=== PATIENT | female | born 2000 | race Caucasian/White ===

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

== ENCOUNTER 2020-01-20 12:44 | Inpatient (IN) | payer OTHER ==
[~2020-01-20] VITALS: Ht 167.6 cm; Wt 81.5 kg
[~2020-01-20 12:44] MED LIST changes: +Abilify2 MG PO; +FLUO10 PO; +Imitrex25 MG PO; +ONDA4ODT MM; +PANT40 PO; +Promethazine12.5 M1 PO; +Protonix40 MG PO; +TOPI50 PO
[2020-01-20 13:14] LABS: BASOPHILS ABSOLUTE AUTO 0.03 K/mm3 (0.00-0.23); BASOPHILS PERCENT AUTO 0 % (0-2); EOSINOPHILS ABSOLUTE AUTO 0.19 K/mm3 (0.00-0.68); EOSINOPHILS PERCENT AUTO 2 % (0-6); Hematocrit 42.9 % (33.0-51.0); Hemoglobin 13.9 g/dL (11.5-16.0); IMMATURE GRAN ABSOLUTE AUTO 0.02 K/mm3 (0.00-0.10); IMMATURE GRAN PERCENT AUTO 0 % (0-1); LYMPHOCYTES ABSOLUTE AUTO 2.34 K/mm3 (0.84-5.20); LYMPHOCYTES PERCENT AUTO 24 % (21-46); MONOCYTES PERCENT AUTO 7 % (4-13); Mean Corpuscular HGB 28.2 pg (26.0-34.0); Mean Corpuscular HGB Conc 32.4 g/dL (31.5-36.5); Mean Corpuscular Volume 87 fL (80-100); Mean Platelet Volume 9.1 fL (9.1-12.4); NEUTROPHILS ABSOLUTE AUTO 6.55 K/mm3 (1.96-9.15); NEUTROPHILS PERCENT AUTO 67 % (41-73); Platelet Count 515 K/mm3 (150-400); RDW Standard Deviation 44.9 fL (35.1-46.3); Red Blood Cell Count 4.93 M/mm3 (3.80-5.20); White Blood Cell Count 9.83 K/mm3 (4.00-11.30)
[2020-01-20 13:34] LABS: Alanine Aminotransfer (ALT/SGP 22 U/L (12-78); Albumin, Blood 3.9 g/dL (3.4-5.0); Alk Phos 83 U/L (45-116); Anion Gap 7 mmol/L (6-16); Aspartate Aminotrans (AST/SGOT 16 U/L (12-37); Bilirubin, Total 0.7 mg/dL (0.1-1.0); Blood Urea Nitrogen 7 mg/dL (8-21); Bun/Creatinine Ratio 8.3 (12.0-20.0); CO2, Blood 22 mmol/L (21-32); Calcium, Blood 8.9 mg/dL (8.5-10.1); Chloride, Blood 109 mmol/L (98-108); Creatinine, Blood 0.85 mg/dL (0.40-1.00); Globulin, Blood 4.1 g/dL (2.2-4.0); Glomerular Filtration Rate >60 (60-); Glucose, Blood 88 mg/dL (70-99); Potassium, Blood 3.6 mmol/L (3.5-5.5); Sodium, Blood 138 mmol/L (136-145)
[2020-01-20 17:18] LABS: Source, Urine Clean Catch
[2020-01-20 17:21] LABS: Appearance, Urine Hazy (Clear); Bilirubin, Urine Neg (Neg); Blood, Urine 2+ (Neg); Color, Urine Yellow (P-Yellow); Glucose Qualitative, Urine Neg (Neg); Ketones, Urine 4+ (Neg); Leukocyte Esterase, Urine 1+ (Neg); Nitrite, Urine Neg (Neg); Protein, Urine Neg (Neg); Urobilinogen, Urine 1+ (Normal)
[2020-01-20 17:37] LABS: Red Blood Cells, Urine 0-2 /hpf (0-2); Squamous Epithelial Cells Few /hpf (Few)
[2020-01-20 17:38] LABS: Bacteria Few /hpf
[2020-01-21 00:06] LABS: U Amphetamine Screen Not Detected; U Barbituate Screen Not Detected; U Benzodiazapine Screen Not Detected; U Buprenorphine Screen Not Detected; U Cannabinoids Screen DETECTED; U Cocaine Screen Not Detected; U Methadone Screen Not Detected; U Methamphetamine Screen Not Detected; U Opiates Screen Not Detected; U Oxycodone Screen Not Detected; U Phencyclidine Screen Not Detected; U Propoxyphene Screen Not Detected
[2020-01-21 05:22] LABS: BASOPHILS ABSOLUTE AUTO 0.04 K/mm3 (0.00-0.23); BASOPHILS PERCENT AUTO 0 % (0-2); EOSINOPHILS PERCENT AUTO 1 % (0-6); Hematocrit 37.8 % (33.0-51.0); Hemoglobin 12.2 g/dL (11.5-16.0); IMMATURE GRAN ABSOLUTE AUTO 0.05 K/mm3 (0.00-0.10); IMMATURE GRAN PERCENT AUTO 0 % (0-1); LYMPHOCYTES PERCENT AUTO 23 % (21-46); MONOCYTES PERCENT AUTO 7 % (4-13); Mean Corpuscular HGB 27.9 pg (26.0-34.0); Mean Corpuscular HGB Conc 32.3 g/dL (31.5-36.5); Mean Corpuscular Volume 87 fL (80-100); Mean Platelet Volume 9.3 fL (9.1-12.4); NEUTROPHILS ABSOLUTE AUTO 11.09 K/mm3 (1.96-9.15); NEUTROPHILS PERCENT AUTO 68 % (41-73); Platelet Count 466 K/mm3 (150-400); RDW Coefficient Variation 13.9 % (11.7-14.2); RDW Standard Deviation 44.5 fL (35.1-46.3); Red Blood Cell Count 4.37 M/mm3 (3.80-5.20); White Blood Cell Count 16.28 K/mm3 (4.00-11.30)
[2020-01-21 05:39] LABS: Albumin, Blood 3.2 g/dL (3.4-5.0); Anion Gap 8 mmol/L (6-16); Blood Urea Nitrogen 7 mg/dL (8-21); Bun/Creatinine Ratio 9.6 (12.0-20.0); CO2, Blood 22 mmol/L (21-32); Calcium, Blood 8.5 mg/dL (8.5-10.1); Chloride, Blood 110 mmol/L (98-108); Creatinine, Blood 0.73 mg/dL (0.40-1.00); Glomerular Filtration Rate >60 (60-); Glucose, Blood 77 mg/dL (70-99); Phosphorus, Blood 4.6 mg/dL (2.5-4.9); Potassium, Blood 3.4 mmol/L (3.5-5.5); Sodium, Blood 140 mmol/L (136-145)
--- NOTE | 2020-01-21 06:00 | NUR ---
SHIFT SUMMARY: PATIENT VSS, NO ISSUES THIS SHIFT, ADMISSION COMPLETED.
--- NOTE | 2020-01-21 12:23 | NUR ---
PT RECEIVES STATUS CHANGE TO MEDICAL DEPT. REPORT GIVEN TO QUITA GREENBERG IN MEDICAL DEPT TO RECEIVE PT.
--- NOTE | 2020-01-21 13:29 | NUR ---
PCU TRANSFER TO 302. PT IS A/O X4. STATE CONTINUING N/V, UNABLE TO EAT X 3 DAYS. 250ML YELLOWISH EMESIS NOTED. PT NPO @ THIS TIME, DECLINE ICE CHIPS. BT HYPO, ABD SOFT. PT STATE NORMAL BM YESTERDAY. NS INFUSING @ 100 ML/HR. WILL PROVIDE ANTIEMETICS/ORDER.
--- NOTE | 2020-01-21 16:58 | NUR ---
SUMMARY PT HAS BEEN NAUSEATED, VOMITING INTERMITTANTLY T/O DAY. PT UNABLE TO EAT X3 DAYS. DR ALVES STATE POSSIBLE ENTERITIS. WBC 16.28. NS @ 100 ML/HR FOR HYDRATION. PT IS WEAK/FATIGUED, IN BED T/O DAY, SIDE LYING. STATE BM YESTERDAY. HAVE GIVEN ZOFRAN, PHENERGAN & REGLAN TODAY HOWEVER W/O GOOD RESULTS, DR ALVES INCREASE PHENERGAN DOSE, STATE TO ALTERNATE MEDS. S/O @ BEDSIDE. THIS AFTERNOON LOW GRADE TEMP 100.9, @ THIS TIME AFEBRILE 97.8.
--- NOTE | 2020-01-22 04:06 | NUR ---
SHIFT SUMMARY ASSUMED CARE OF PT AT 1900. PT IS A/OX4, DENIES N/T IN EXTREMTES. PT HAS BEEN VERY TIRED AND SLEPT T/O THE NIGHT. HEART SOUNDS REGULAR, TELE SHOWS SINUS @ 81, DENIES CP. LUNG SOUNDS CLEAR, LIBRADO SOB. PT HAS BEEN RETCHING ALL NIGHT, EMESIS IS DARK COLORED. PT WAS MEDICATED ONCE DURING THE NIGHT WITH REGALAN. PT IS INDEPENDENT TO BATHROOM. CALL LIGHT IN REACH, BED IN LOWEST POSTION.
[2020-01-22 05:20] LABS: BASOPHILS ABSOLUTE AUTO 0.02 K/mm3 (0.00-0.23); BASOPHILS PERCENT AUTO 0 % (0-2); EOSINOPHILS ABSOLUTE AUTO 0.01 K/mm3 (0.00-0.68); EOSINOPHILS PERCENT AUTO 0 % (0-6); Hematocrit 40.5 % (33.0-51.0); Hemoglobin 12.8 g/dL (11.5-16.0); IMMATURE GRAN ABSOLUTE AUTO 0.05 K/mm3 (0.00-0.10); IMMATURE GRAN PERCENT AUTO 0 % (0-1); LYMPHOCYTES ABSOLUTE AUTO 1.82 K/mm3 (0.84-5.20); LYMPHOCYTES PERCENT AUTO 11 % (21-46); MONOCYTES ABSOLUTE AUTO 1.01 K/mm3 (0.16-1.47); MONOCYTES PERCENT AUTO 6 % (4-13); Mean Corpuscular HGB 27.8 pg (26.0-34.0); Mean Corpuscular HGB Conc 31.6 g/dL (31.5-36.5); Mean Corpuscular Volume 88 fL (80-100); Mean Platelet Volume 9.6 fL (9.1-12.4); NEUTROPHILS ABSOLUTE AUTO 13.68 K/mm3 (1.96-9.15); NEUTROPHILS PERCENT AUTO 82 % (41-73); Platelet Count 505 K/mm3 (150-400); RDW Coefficient Variation 14.1 % (11.7-14.2); RDW Standard Deviation 45.3 fL (35.1-46.3); White Blood Cell Count 16.59 K/mm3 (4.00-11.30)
[2020-01-22 05:42] LABS: Albumin, Blood 3.7 g/dL (3.4-5.0); Anion Gap 10 mmol/L (6-16); Blood Urea Nitrogen 7 mg/dL (8-21); Bun/Creatinine Ratio 9.9 (12.0-20.0); CO2, Blood 20 mmol/L (21-32); Calcium, Blood 8.5 mg/dL (8.5-10.1); Chloride, Blood 111 mmol/L (98-108); Creatinine, Blood 0.71 mg/dL (0.40-1.00); Glomerular Filtration Rate >60 (60-); Glucose, Blood 87 mg/dL (70-99); Phosphorus, Blood 3.3 mg/dL (2.5-4.9); Potassium, Blood 3.8 mmol/L (3.5-5.5); Sodium, Blood 141 mmol/L (136-145)
--- NOTE | 2020-01-22 17:58 | NUR ---
SHIFT SUMMARY: PT CONTINUED TO BE NAUSEATED AND HAD SEVERAL EPISODES OF EMESIS, DARK GREEN WITH NO NAE BLOOD. GIVEN ICE CHIPS AND ICE WATER, POORLY TOLERATED. SHOWERED X 2, GETTING UP TO BR INDEPENDENTLY. NO EVENTS ON TELEMETRY. C/O PAIN IN RUQ AND RLQ; MEDICATED PER EMAR WITH SHORT TERM RELIEF. S.O. AT BEDSIDE FOR PART OF THE DAY. NO INFORMATION TO BE GIVEN IF PT'S "MOTHER" CALLS.
--- NOTE | 2020-01-23 04:27 | NUR ---
TRUER PINION AND WHEEL SUMMARY ALERT AND ORIENTED. REPORTS EPIGASTRIC PAIN T/O NIGHT WITH SEVERAL EPISODES OF DARK BROWN EMESIS. DENIES SOB. NO ACUTE DISTRESS NOTED. BED IN LOWEST POSITION WITH CALL LIGHT IN REACH. WILL CONTINUE TO MONTIOR AND REPORT TO ONCOMING RN.
[2020-01-23 09:23] LABS: BASOPHILS ABSOLUTE AUTO 0.03 K/mm3 (0.00-0.23); BASOPHILS PERCENT AUTO 0 % (0-2); EOSINOPHILS ABSOLUTE AUTO 0.07 K/mm3 (0.00-0.68); EOSINOPHILS PERCENT AUTO 0 % (0-6); Hematocrit 41.6 % (33.0-51.0); Hemoglobin 13.5 g/dL (11.5-16.0); IMMATURE GRAN ABSOLUTE AUTO 0.06 K/mm3 (0.00-0.10); IMMATURE GRAN PERCENT AUTO 0 % (0-1); LYMPHOCYTES ABSOLUTE AUTO 2.43 K/mm3 (0.84-5.20); LYMPHOCYTES PERCENT AUTO 14 % (21-46); MONOCYTES ABSOLUTE AUTO 1.05 K/mm3 (0.16-1.47); MONOCYTES PERCENT AUTO 6 % (4-13); Mean Corpuscular HGB 28.4 pg (26.0-34.0); Mean Corpuscular HGB Conc 32.5 g/dL (31.5-36.5); Mean Corpuscular Volume 87 fL (80-100); Mean Platelet Volume 9.2 fL (9.1-12.4); NEUTROPHILS ABSOLUTE AUTO 13.54 K/mm3 (1.96-9.15); NEUTROPHILS PERCENT AUTO 79 % (41-73); Platelet Count 495 K/mm3 (150-400); RDW Standard Deviation 45.7 fL (35.1-46.3); Red Blood Cell Count 4.76 M/mm3 (3.80-5.20); White Blood Cell Count 17.18 K/mm3 (4.00-11.30)
[2020-01-23 09:32] LABS: Anion Gap 9 mmol/L (6-16); Blood Urea Nitrogen 7 mg/dL (8-21); Bun/Creatinine Ratio 12.8 (12.0-20.0); CO2, Blood 24 mmol/L (21-32); Chloride, Blood 108 mmol/L (98-108); Creatinine, Blood 0.55 mg/dL (0.40-1.00); Glomerular Filtration Rate >60 (60-); Glucose, Blood 93 mg/dL (70-99); Magnesium, Blood 2.2 mg/dL (1.6-2.4); Potassium, Blood 3.6 mmol/L (3.5-5.5); Sodium, Blood 141 mmol/L (136-145)
--- NOTE | 2020-01-23 16:53 | NUR ---
SHIFT SUMMARY PT SLEEPING AT START OF SHIFT. LATER C/O N/V. 200cc CLEAR EMESIS OUT; MEDICATED PER EMAR. DR ALVES IN LATER TO SEE PT. NEW ORDERS RECEIVED. ATIVAN 0.5 MG GIVEN. N/V STOPPED AND PT WENT TO SLEEP, LATER REPORTING IT EFFECTIVE. EMESIS OUTPUT HAS DECREASED SIGNIFICANTLY AFTER ATIVAN GIVEN. PT WOKE RECENTLY AGAIN C/O NAUSEA WITH ONLY SM AMT CL EMESIS. ATIVAN 0.5 MG GIVEN PER EMAR. PT THEN UP TO SHOWER. IV TO LAC BECOMING DIFFICULT TO INFUSE. PT SL AT THIS TIME. NEW IV TO BE ATTEMPTED. PT HAS BEEN DIFFICULT START, PER REPORT. VISITOR IN AT THIS TIME. CALL LT IN REACH.
[2020-01-24 04:11] LABS: BASOPHILS ABSOLUTE AUTO 0.05 K/mm3 (0.00-0.23); BASOPHILS PERCENT AUTO 0 % (0-2); EOSINOPHILS ABSOLUTE AUTO 0.08 K/mm3 (0.00-0.68); EOSINOPHILS PERCENT AUTO 1 % (0-6); Hematocrit 37.7 % (33.0-51.0); Hemoglobin 12.4 g/dL (11.5-16.0); IMMATURE GRAN ABSOLUTE AUTO 0.04 K/mm3 (0.00-0.10); IMMATURE GRAN PERCENT AUTO 0 % (0-1); LYMPHOCYTES ABSOLUTE AUTO 2.43 K/mm3 (0.84-5.20); LYMPHOCYTES PERCENT AUTO 17 % (21-46); MONOCYTES ABSOLUTE AUTO 1.11 K/mm3 (0.16-1.47); MONOCYTES PERCENT AUTO 8 % (4-13); Mean Corpuscular HGB 28.2 pg (26.0-34.0); Mean Corpuscular HGB Conc 32.9 g/dL (31.5-36.5); Mean Corpuscular Volume 86 fL (80-100); Mean Platelet Volume 9.2 fL (9.1-12.4); NEUTROPHILS ABSOLUTE AUTO 10.81 K/mm3 (1.96-9.15); NEUTROPHILS PERCENT AUTO 75 % (41-73); Platelet Count 453 K/mm3 (150-400); RDW Coefficient Variation 13.8 % (11.7-14.2); RDW Standard Deviation 43.3 fL (35.1-46.3); White Blood Cell Count 14.52 K/mm3 (4.00-11.30)
[2020-01-24 04:26] LABS: Albumin, Blood 3.4 g/dL (3.4-5.0); Anion Gap 12 mmol/L (6-16); Blood Urea Nitrogen 8 mg/dL (8-21); Bun/Creatinine Ratio 14.3 (12.0-20.0); CO2, Blood 22 mmol/L (21-32); Calcium, Blood 8.3 mg/dL (8.5-10.1); Chloride, Blood 106 mmol/L (98-108); Creatinine, Blood 0.56 mg/dL (0.40-1.00); Glomerular Filtration Rate >60 (60-); Glucose, Blood 84 mg/dL (70-99); Magnesium, Blood 2.1 mg/dL (1.6-2.4); Phosphorus, Blood 2.9 mg/dL (2.5-4.9); Potassium, Blood 3.5 mmol/L (3.5-5.5); Sodium, Blood 140 mmol/L (136-145)
--- NOTE | 2020-01-24 04:42 | NUR ---
RAIL CREW MEMBER SUMMARY ALERT AND ORIENTED. NO ACUTE CHANGES THIS SHIFT. CONTINUES TO HAVE EMESIS EVERY 1-2 HOURS. BREATHING IS UNLABORED. VSS. BED IN LOWEST POSITION WITH CALL LIGHT IN REACH. WILL CONTINUE TO MONITOR AND REPORT TO ONCOMING RN.
--- NOTE | 2020-01-24 16:49 | NUR ---
SHIFT SUMMARY PT IS AXO4, WHO WAS ADMITTED FOR PNEUMOMEDIASTINUM. PT ON TELE, SINUS RHYTHM @60S- DENIES CP, SOB, PAIN. PT IS ON ROOM AIR, INDEPENDENT IN THE ROOM. PT HAD FEW EPISODES OF VOMITING TODAY. PT IS NOW ON CLEAR LIQUID DIET, HOWEVER; STILL HAD AN EPISODE OF N&V. ENCOURAGED PO TOLERATED, AND MEDICATED PER EMAR. BED IS IN THE LOWEST POSITION, CALL LIGHTS WITHIN REACH, AND WILL CONTINUE MONITOR UNTIL NEXT SHIFT REPORT.
--- NOTE | 2020-01-24 18:50 | NUR ---
PT N&V DID NOT IMPROVE AFTER THE ATIVAN AND PHENARGAN TODAY. GOT AN ORDER FOR GI CONSULT, APPARENTLY THERE ARE NO GI PROVIDER AVAILABLE UNTIL THE . INSTEAD GOT AN ORDER COMPAZINE RECTALLY.
--- NOTE | 2020-01-25 05:29 | NUR ---
SHIFT SUMMARY: VSS. DBP 99. BP ELEVATED UPON FIRST AM CHECK, BUT PT VOMITING AND UP TO BSC AT THE TIME OF BP CHECK. REASSESSED AND BP 139/99. PT RESTING QUIETLY AT THE TIME. ATIVAN ONLY GIVEN FOR NAUSEA. PT STATES HE RECEIVES NO RELIEF FROM ALTERNATE ANTIEMETICS. REFUSES SD MEDS. STATES ATIVAN DOES NOT RELIEVE NAUSEA BUT INSTEAD HELPS PT TO SLEEP THROUGH IT. WRETCHING AND VOMITING GREEN BILE INTERMITTENTLY THROUGH THE NIGHT. CONT IV FLUIDS. PT SUCKING ON ICE CHIPS. NO SOB. LSCTA. 02 SATS 99-100% ON RA. RESPS NON-LABORED. STATES THAT THROAT IS SORE AND ABD TENDER W/PALPATION BUT OTHERWISE NO PAIN REQUIRING ANALGESICS. NO ACUTE CHANGES OVERNIGHT. WILL CONT TO MONITOR.
[2020-01-25 05:56] LABS: Albumin, Blood 3.1 g/dL (3.4-5.0); Anion Gap 12 mmol/L (6-16); Blood Urea Nitrogen 6 mg/dL (8-21); CO2, Blood 22 mmol/L (21-32); Calcium, Blood 8.4 mg/dL (8.5-10.1); Chloride, Blood 103 mmol/L (98-108); Creatinine, Blood 0.55 mg/dL (0.40-1.00); Glomerular Filtration Rate >60 (60-); Glucose, Blood 75 mg/dL (70-99); Magnesium, Blood 2.1 mg/dL (1.6-2.4); Phosphorus, Blood 3.2 mg/dL (2.5-4.9); Potassium, Blood 2.9 mmol/L (3.5-5.5); Sodium, Blood 137 mmol/L (136-145)
--- NOTE | 2020-01-25 10:05 | NUR ---
PT GIRLFRIEND WAS CONCERNED ABOUT THE PT WANTING TO GO HOME WITH THE PT CURRENT CONDITION. PT STILL CONT VOMITING THIS MORNING. DR. ALVES ORDERED SCOPALAMINE PATCH, AND K-RIDER FOR THE PT LOW POTASSIUM, WHICH IS 2.9. I EXPLAINED TO THE PT ABOUT HER POTASSIUM, AND DECIDED TO STAY. PT STILL WANTS TO TALK TO THE DR ABOUT CONCERNS. NOTIFIED.
--- NOTE | 2020-01-25 15:15 | NUR ---
THE PT STATED WANTING TO GO HOME STILL AFTER THE 2 DOSE OF K-RIDER. PT STILL CONT VOMITING AFTER A DOSAGE OF ATIVAN, PHENERGAN, AND THE SCOPALAMINE PATCH. I CALLED DR. ALVES AND NOTIFIED HER.
[2020-01-25] MEDS ORDERED: PROM25 PO (17:34)
[2020-01-25] MEDS ORDERED: FAMO20 PO (17:35)
[2020-01-25] MEDS ORDERED: KLOR-CON M1010 MEQ PO (17:58)
--- NOTE | 2020-01-25 18:11 | NUR ---
DISCHARGE PT DISCHARGE VIA WHEELCHAIR WITH GIRLFRIEND. NO SOB, NO CP, BUT STILL CONTINUES TO HAVE NAUSEA AND VOMITING. DR ALVES NOTIFIED AND PT WANTED TO GO HOME DESPITE HIS CURRENT SITUATION. PT RECEIVED 2 DOSE OF KRIDER AND MULTIPLE DOSE OF ATIVAN AND PHENERGAN TODAY. PT NOTIFIED THAT NOCTURNIST PHYSICIAN WILL CALL FOR THE PT FOLLOW UP APPOINTMENT TO HIS PROVIDER. PT VERBALIZED UNDERSTANDING. PT RECEIVED INSTRUCTIONS/HANDOUTS/PRINTOUTS. IV DC'D. PRESCRIBED RX FAXED TO PHARMACY, WHICH IS [facility], AND PT INFORMED.
== END 2020-01-25 18:08 | disposition home or self-care (01) | DRG 392 ==
LOC: ER 12:44 → PCU 12:45 → ERHOLD 12:45 → PCU 01-21 00:31 → MEDS 01-21 12:24
PROVIDERS: Emergency Medicine; Internal Medicine; ADMIT Family Medicine
DX: R11.2 Nausea with vomiting, unspecified (principal); F12.99 Cannabis use, unspecified with unspecified cannabis-induced disorder; E87.6 Hypokalemia; F43.10 Post-traumatic stress disorder, unspecified; J98.2 Interstitial emphysema; F64.0 Transsexualism
CPT/HCPCS: 36415; 71045; 71046; 71250; 74220; 80048; 80053; 80069; 81001; 83690; 83735; 85025; 87086; 93005; 93010; 96361; 96374; 96375; 96376; 99285-25; C9113; G0378; J1170; J1630; J2060; J2405; J2550; J2765; J3010; J3480; J7030; J7120

== ENCOUNTER 2020-02-05 18:19 | Inpatient (IN) | payer OTHER ==
[~2020-02-05] VITALS: Ht 167.6 cm; Wt 77.1 kg
[~2020-02-05 18:19] MED LIST changes: -Abilify2 MG PO; +FAMO20 PO; -FLUO10 PO; +KLOR-CON M1010 MEQ PO; -PANT40 PO; +PHENERGAN25 MG PR; -Prazosin HCl5 MG PO; -Vistaril50 MG PO
[2020-02-05 19:25] LABS: BASOPHILS ABSOLUTE AUTO 0.08 K/mm3 (0.00-0.23); BASOPHILS PERCENT AUTO 0 % (0-2); EOSINOPHILS ABSOLUTE AUTO 0.09 K/mm3 (0.00-0.68); EOSINOPHILS PERCENT AUTO 0 % (0-6); Hematocrit 46.8 % (33.0-51.0); Hemoglobin 15.7 g/dL (11.5-16.0); IMMATURE GRAN ABSOLUTE AUTO 0.09 K/mm3 (0.00-0.10); IMMATURE GRAN PERCENT AUTO 0 % (0-1); LYMPHOCYTES ABSOLUTE AUTO 2.67 K/mm3 (0.84-5.20); LYMPHOCYTES PERCENT AUTO 12 % (21-46); MONOCYTES ABSOLUTE AUTO 1.92 K/mm3 (0.16-1.47); MONOCYTES PERCENT AUTO 8 % (4-13); Mean Corpuscular HGB 28.5 pg (26.0-34.0); Mean Corpuscular HGB Conc 33.5 g/dL (31.5-36.5); Mean Corpuscular Volume 85 fL (80-100); Mean Platelet Volume 10.3 fL (9.1-12.4); NEUTROPHILS ABSOLUTE AUTO 18.35 K/mm3 (1.96-9.15); NEUTROPHILS PERCENT AUTO 79 % (41-73); Platelet Count 482 K/mm3 (150-400); RDW Coefficient Variation 14.2 % (11.7-14.2); RDW Standard Deviation 43.8 fL (35.1-46.3)
[2020-02-05 19:39] LABS: International Normalized Ratio 1.84
[2020-02-05 19:43] LABS: Alanine Aminotransfer (ALT/SGP 140 U/L (12-78); Albumin, Blood 4.1 g/dL (3.4-5.0); Alk Phos 97 U/L (45-116); Anion Gap 10 mmol/L (6-16); Aspartate Aminotrans (AST/SGOT 28 U/L (12-37); Blood Urea Nitrogen 5 mg/dL (8-21); Bun/Creatinine Ratio 8.4 (12.0-20.0); CO2, Blood 26 mmol/L (21-32); Calcium, Blood 9.9 mg/dL (8.5-10.1); Chloride, Blood 100 mmol/L (98-108); Globulin, Blood 4.1 g/dL (2.2-4.0); Glomerular Filtration Rate >60 (60-); Glucose, Blood 95 mg/dL (70-99); Potassium, Blood 3.1 mmol/L (3.5-5.5); Sodium, Blood 136 mmol/L (136-145); Total Protein, Blood 8.2 g/dL (6.4-8.2)
[2020-02-05] MEDS ORDERED: OMEP20ER PO (21:33)
[2020-02-05] MEDS ORDERED: Vistaril50 MG PO (21:40)
[2020-02-05] MEDS ORDERED: Abilify2 MG PO (21:40)
[2020-02-05] MEDS ORDERED: FLUO10 PO (21:41)
[2020-02-05] MEDS ORDERED: PRAZ2 PO (21:51)
[2020-02-05] MEDS ORDERED: PROM25 PO (21:52)
--- NOTE | 2020-02-05 23:25 | NUR ---
NEW ADMIT FROM ER FOR APPENDICITIS/SEPSIS. PT ALERT, INDEPENDENLTY AMBULATES TO BED. STATES PAIN IS MINIMAL, DENIES N/V AT THIS TIME. PT IS TRANS MALE AND PREFERS TO BE CALLED "LEONITUS" REVIEWED ALL ORDERS, ANSWERED QUESTIONS. IV K+RIDER STARTED. BLOOD CONSENT SIGNED, SURGICAL PACKET ON CHART. ER DOCTOR SPOKE WITH DR. SPENCE ALREADY AND WILL CONSULT IN AM.
--- NOTE | 2020-02-06 01:14 | NUR ---
ASSUMED CARE OF PT. PT LYING AWAKE IN BED, NO DISTRESS NOTED. PT DENIES N/V, REPORTS PAIN SALAZAR AT THIS TIME. IVF AND K+ RIDER RUNNING PER ORDERS. PT DENIES NEEDS AT THIS TIME. WILL CONT TO MONITOR AND TX PER ORDERS.
[2020-02-06 06:24] LABS: BASOPHILS ABSOLUTE AUTO 0.04 K/mm3 (0.00-0.23); BASOPHILS PERCENT AUTO 0 % (0-2); EOSINOPHILS ABSOLUTE AUTO 0.21 K/mm3 (0.00-0.68); EOSINOPHILS PERCENT AUTO 2 % (0-6); Hematocrit 41.1 % (33.0-51.0); Hemoglobin 13.1 g/dL (11.5-16.0); IMMATURE GRAN ABSOLUTE AUTO 0.03 K/mm3 (0.00-0.10); IMMATURE GRAN PERCENT AUTO 0 % (0-1); LYMPHOCYTES ABSOLUTE AUTO 3.39 K/mm3 (0.84-5.20); LYMPHOCYTES PERCENT AUTO 26 % (21-46); MONOCYTES ABSOLUTE AUTO 1.36 K/mm3 (0.16-1.47); MONOCYTES PERCENT AUTO 10 % (4-13); Mean Corpuscular HGB 28.1 pg (26.0-34.0); Mean Corpuscular HGB Conc 31.9 g/dL (31.5-36.5); Mean Corpuscular Volume 88 fL (80-100); NEUTROPHILS ABSOLUTE AUTO 8.24 K/mm3 (1.96-9.15); NEUTROPHILS PERCENT AUTO 62 % (41-73); Platelet Count 344 K/mm3 (150-400); RDW Coefficient Variation 14.5 % (11.7-14.2); RDW Standard Deviation 46.7 fL (35.1-46.3); Red Blood Cell Count 4.67 M/mm3 (3.80-5.20); White Blood Cell Count 13.27 K/mm3 (4.00-11.30)
--- NOTE | 2020-02-06 06:41 | NUR ---
PT NEW ADMIT THIS SHIFT FOR APPY. PT VSS SINCE ARRIVING TO FLOOR. PT REP PAIN/N/V TOLERABLE, DECLINED NEED FOR MEDS. IVF AND ABX CONT PER ORDERS. PT NPO FOR PLAN FOR OR TODAY.
[2020-02-06 06:42] LABS: Anion Gap 4 mmol/L (6-16); Blood Urea Nitrogen 4 mg/dL (8-21); Bun/Creatinine Ratio 6.3 (12.0-20.0); CO2, Blood 30 mmol/L (21-32); Calcium, Blood 8.5 mg/dL (8.5-10.1); Chloride, Blood 105 mmol/L (98-108); Creatinine, Blood 0.64 mg/dL (0.40-1.00); Glomerular Filtration Rate >60 (60-); Glucose, Blood 88 mg/dL (70-99); Potassium, Blood 3.3 mmol/L (3.5-5.5); Sodium, Blood 139 mmol/L (136-145)
--- NOTE | 2020-02-06 07:10 | NUR ---
PT SLEEPING IN BED, BED IN LOWEST POSITION, BED RAILS UP X 2, CALL LIGHT WITHIN REACH
--- NOTE | 2020-02-06 08:00 | NUR ---
DAYSURGERY TO COME PREP PT FOR SURGERY; SENT COVID-19 SWAB AND UA TO LAB. PT EMPTIED BLADDER, REMOVED JEWELRY, IN GOWN ONLY
--- NOTE | 2020-02-06 08:30 | NUR ---
PT TO [facility] FOR APPENTECTOMY
--- NOTE | 2020-02-06 12:00 | NUR ---
PT BACK IN ROOM FOLLOWING APPENDECTOMY, A/O X 4, PLEASANT, DROWSY, STATES TO SOME MILD NAUSEA, NO VOMITING, RATES PAINT AT 7/10. PROVIDED ANALGESIA AND ANTINAUSEA PER JUL. PT'S FAMILY NOTIFIED OF CONDITION. POSTOP VS COMMENCED AND STABLE.
--- NOTE | 2020-02-07 02:43 | NUR ---
REPORT GIVEN TO Marcos BREWER RN AND Nataliia GUERRERO RN.
--- NOTE | 2020-02-07 02:50 | NUR ---
ASSUMED CARE ASSUMED CARE OF PT AT THIS TIME, REPORT RECEIVED FROM Benjamin MENDEZ RN.
--- NOTE | 2020-02-07 06:15 | NUR ---
SHIFT SUMMARY SEPSIS W/ LAP APPY, A/O X4, VSS, PAIN CONTROLLED PER EMAR, ABX COMPLETE, PLAN TO DC TODAY. WILL CONTINUE TO MONITOR AND REPORT TO ONCOMING DAY RN.
[2020-02-07 07:58] LABS: BASOPHILS ABSOLUTE AUTO 0.02 K/mm3 (0.00-0.23); BASOPHILS PERCENT AUTO 0 % (0-2); EOSINOPHILS ABSOLUTE AUTO 0.22 K/mm3 (0.00-0.68); EOSINOPHILS PERCENT AUTO 3 % (0-6); Hemoglobin 11.6 g/dL (11.5-16.0); IMMATURE GRAN ABSOLUTE AUTO 0.02 K/mm3 (0.00-0.10); IMMATURE GRAN PERCENT AUTO 0 % (0-1); LYMPHOCYTES ABSOLUTE AUTO 2.26 K/mm3 (0.84-5.20); LYMPHOCYTES PERCENT AUTO 27 % (21-46); MONOCYTES ABSOLUTE AUTO 0.91 K/mm3 (0.16-1.47); MONOCYTES PERCENT AUTO 11 % (4-13); Mean Corpuscular HGB 28.2 pg (26.0-34.0); Mean Corpuscular HGB Conc 30.5 g/dL (31.5-36.5); Mean Platelet Volume 10.6 fL (9.1-12.4); NEUTROPHILS ABSOLUTE AUTO 5.09 K/mm3 (1.96-9.15); NEUTROPHILS PERCENT AUTO 60 % (41-73); Platelet Count 275 K/mm3 (150-400); RDW Coefficient Variation 14.7 % (11.7-14.2); RDW Standard Deviation 50.4 fL (35.1-46.3); Red Blood Cell Count 4.11 M/mm3 (3.80-5.20); White Blood Cell Count 8.52 K/mm3 (4.00-11.30)
[2020-02-07 08:02] LABS: Mean Corpuscular Volume 93 fL (80-100)
[2020-02-07 08:25] LABS: Albumin, Blood 2.6 g/dL (3.4-5.0); Anion Gap 3 mmol/L (6-16); Blood Urea Nitrogen 2 mg/dL (8-21); Bun/Creatinine Ratio 3.6 (12.0-20.0); CO2, Blood 25 mmol/L (21-32); Chloride, Blood 110 mmol/L (98-108); Creatinine, Blood 0.55 mg/dL (0.40-1.00); Glomerular Filtration Rate >60 (60-); Glucose, Blood 90 mg/dL (70-99); Phosphorus, Blood 3.3 mg/dL (2.5-4.9); Potassium, Blood 4.3 mmol/L (3.5-5.5); Sodium, Blood 138 mmol/L (136-145)
[2020-02-07] MEDS ORDERED: Norco 5-325 Ta1 EACH PO (10:13)
--- NOTE | 2020-02-07 12:16 | NUR ---
DISCHARGE SUMMARY PT DISCHARDED AT 1204 TRANSPORTED VIA W/C WITH SHAYNE MANCERA. PT REPORTS MILD PAIN 3/10 ON RLQ REGION. PAIN CONTROLLED WITH 5MG NORCO PER MD ORDER. PT STS PAIN HAS IMPROVED. IV FROM RIGHT FOREARM HAS BEEN DC'S, CATH INTACT, NO SWELLING, PAIN AND INFILTRATION AT IV SITE. PT TOLERATED BREAKFAST MEAL DENIES NAUSEA AND VOMITING. URINE OUTPUT OF 1000ML. DISCHARGED INSTRUCTIONS WHERE ADDRESS AT 1133 WITH QUITA SAUCEDO.
== END 2020-02-07 12:07 | disposition home or self-care (01) | DRG 854 ==
LOC: ER 18:19 → SURS 21:55
PROVIDERS: Internal Medicine; Nurse Practitioner Acute Care; Physician Assistant; Surgery; ADMIT Internal Medicine
PROC: 0DTJ4ZZ Resection of Appendix, Percutaneous Endoscopic Approach (ICD-10-PCS; principal; 2020-02-06 10:00)
DX: A41.9 Sepsis, unspecified organism (principal); K35.80 Unspecified acute appendicitis; E87.6 Hypokalemia; F41.9 Anxiety disorder, unspecified; F32.9 Major depressive disorder, single episode, unspecified; F43.10 Post-traumatic stress disorder, unspecified; K21.9 Gastro-esophageal reflux disease without esophagitis; G40.909 Epilepsy, unspecified, not intractable, without status epilepticus; F64.0 Transsexualism; Z87.891 Personal history of nicotine dependence
CPT/HCPCS: 36415; 80048; 80053; 80069; 81025; 83605; 85025; 85610; 85730; 88304; 96365; 96375; 99284-25; A9270-GY; J0330; J0780; J1170; J2250; J2370; J2543; J2550; J2704; J2710; J3010; J3480; J7030; J7120; U0002

== ENCOUNTER 2020-05-29 10:11 | Emergency (ER) | payer OTHER ==
[~2020-05-29] VITALS: Ht 172.7 cm; Wt 77.1 kg
[~2020-05-29 10:11] MED LIST changes: +ALMACONE SUSPE355 ML PO; +Abilify2 MG PO; +FLUO10 PO; +Norco 5-325 Ta1 EACH PO; +PRAZ2 PO; +PROM25 PO; -TOPI50 PO; +Vistaril50 MG PO
[2020-05-29 10:43] LABS: BASOPHILS ABSOLUTE AUTO 0.06 K/mm3 (0.00-0.23); BASOPHILS PERCENT AUTO 0 % (0-2); EOSINOPHILS ABSOLUTE AUTO 0.22 K/mm3 (0.00-0.68); EOSINOPHILS PERCENT AUTO 1 % (0-6); Hematocrit 42.2 % (33.0-51.0); Hemoglobin 13.1 g/dL (11.5-16.0); IMMATURE GRAN ABSOLUTE AUTO 0.06 K/mm3 (0.00-0.10); IMMATURE GRAN PERCENT AUTO 0 % (0-1); LYMPHOCYTES PERCENT AUTO 13 % (21-46); MONOCYTES ABSOLUTE AUTO 0.97 K/mm3 (0.16-1.47); MONOCYTES PERCENT AUTO 6 % (4-13); Mean Corpuscular HGB 26.8 pg (26.0-34.0); Mean Corpuscular Volume 86 fL (80-100); Mean Platelet Volume 9.5 fL (9.1-12.4); NEUTROPHILS ABSOLUTE AUTO 13.43 K/mm3 (1.96-9.15); NEUTROPHILS PERCENT AUTO 80 % (41-73); Platelet Count 530 K/mm3 (150-400); RDW Coefficient Variation 13.6 % (11.7-14.2); RDW Standard Deviation 43.2 fL (35.1-46.3); Red Blood Cell Count 4.89 M/mm3 (3.80-5.20); White Blood Cell Count 16.84 K/mm3 (4.00-11.30)
[2020-05-29 11:01] LABS: Alanine Aminotransfer (ALT/SGP 33 U/L (12-78); Albumin, Blood 3.9 g/dL (3.4-5.0); Alk Phos 81 U/L (50-136); Anion Gap 9 mmol/L (6-16); Aspartate Aminotrans (AST/SGOT 14 U/L (12-37); Bilirubin, Total 0.2 mg/dL (0.1-1.0); Blood Urea Nitrogen 8 mg/dL (8-24); Bun/Creatinine Ratio 13.8 (12.0-20.0); CO2, Blood 23 mmol/L (21-32); Calcium, Blood 8.9 mg/dL (8.5-10.1); Chloride, Blood 108 mmol/L (98-108); Creatinine, Blood 0.58 mg/dL (0.40-1.00); Glomerular Filtration Rate >60 (60-); Glucose, Blood 117 mg/dL (70-99); Potassium, Blood 3.9 mmol/L (3.5-5.5); Sodium, Blood 140 mmol/L (136-145); Total Protein, Blood 7.9 g/dL (6.4-8.2)
[2020-05-29] MEDS ORDERED: PROM25 PO (12:53)
== END 2020-05-29 13:44 | disposition home or self-care (01) ==
LOC: ER 10:11
PROVIDERS: Emergency Medicine
DX: K29.70 Gastritis, unspecified, without bleeding (principal); G89.29 Other chronic pain; Z79.899 Other long term (current) drug therapy; Z88.2 Allergy status to sulfonamides; Z88.5 Allergy status to narcotic agent
CPT/HCPCS: 36415; 80053; 83690; 85025; 96374; 96375; 99284-25; J0780; J1200; J1630; J2405; J7030

== ENCOUNTER 2020-05-31 16:38 | Observation (INO) | payer OTHER ==
[~2020-05-31] VITALS: Ht 172.7 cm; Wt 80.9 kg
[2020-05-31 17:12] LABS: BASOPHILS ABSOLUTE AUTO 0.04 K/mm3 (0.00-0.23); BASOPHILS PERCENT AUTO 0 % (0-2); EOSINOPHILS PERCENT AUTO 0 % (0-6); Hematocrit 41.9 % (33.0-51.0); Hemoglobin 13.3 g/dL (11.5-16.0); IMMATURE GRAN ABSOLUTE AUTO 0.08 K/mm3 (0.00-0.10); IMMATURE GRAN PERCENT AUTO 0 % (0-1); LYMPHOCYTES ABSOLUTE AUTO 1.14 K/mm3 (0.84-5.20); LYMPHOCYTES PERCENT AUTO 5 % (21-46); MONOCYTES ABSOLUTE AUTO 0.65 K/mm3 (0.16-1.47); MONOCYTES PERCENT AUTO 3 % (4-13); Mean Corpuscular HGB 26.9 pg (26.0-34.0); Mean Corpuscular HGB Conc 31.7 g/dL (31.5-36.5); Mean Corpuscular Volume 85 fL (80-100); Mean Platelet Volume 9.4 fL (9.1-12.4); NEUTROPHILS ABSOLUTE AUTO 19.48 K/mm3 (1.96-9.15); NEUTROPHILS PERCENT AUTO 91 % (41-73); Platelet Count 529 K/mm3 (150-400); RDW Coefficient Variation 13.6 % (11.7-14.2); RDW Standard Deviation 42.1 fL (35.1-46.3); Red Blood Cell Count 4.95 M/mm3 (3.80-5.20); White Blood Cell Count 21.39 K/mm3 (4.00-11.30)
[2020-05-31 17:34] LABS: Alanine Aminotransfer (ALT/SGP 30 U/L (12-78); Alk Phos 79 U/L (50-136); Anion Gap 5 mmol/L (6-16); Aspartate Aminotrans (AST/SGOT 17 U/L (12-37); Bilirubin, Total 0.4 mg/dL (0.1-1.0); Blood Urea Nitrogen 7 mg/dL (8-24); Bun/Creatinine Ratio 14.3 (12.0-20.0); CO2, Blood 24 mmol/L (21-32); Calcium, Blood 9.1 mg/dL (8.5-10.1); Chloride, Blood 108 mmol/L (98-108); Creatinine, Blood 0.49 mg/dL (0.40-1.00); Globulin, Blood 4.2 g/dL (2.2-4.0); Glomerular Filtration Rate >60 (60-); Glucose, Blood 115 mg/dL (70-99); Potassium, Blood 3.9 mmol/L (3.5-5.5); Sodium, Blood 137 mmol/L (136-145); Total Protein, Blood 8.2 g/dL (6.4-8.2)
[2020-05-31] MEDS ORDERED: Reglan10 MG PO (20:36)
[2020-05-31] MEDS ORDERED: OMEP20ER PO (21:52)
[2020-05-31] MEDS ORDERED: PRAZ5 PO (21:52)
[2020-05-31] MEDS ORDERED: ABILIFY MYCITE2 MG PO (21:52)
[2020-05-31] MEDS ORDERED: HYDPAM50 PO (21:54)
[2020-05-31] MEDS ORDERED: FLUO10 PO (22:02)
[2020-05-31] MEDS ORDERED: TOPI50 PO (22:02)
[2020-05-31 23:59] LABS: Source, Urine Clean Catch
[2020-06-01 00:11] LABS: Bilirubin, Urine Neg (Neg); Blood, Urine 1+ (Neg); Glucose Qualitative, Urine Neg (Neg); Ketones, Urine 3+ (Neg); Leukocyte Esterase, Urine Neg (Neg); Nitrite, Urine Neg (Neg); Protein, Urine Neg (Neg); Urobilinogen, Urine NORM (Normal)
[2020-06-01 00:23] LABS: Appearance, Urine Clear (Clear); Color, Urine Yellow (P-Yellow)
[2020-06-01 00:24] LABS: Bacteria Not Seen /hpf; Mucus Light (0-Heavy); Red Blood Cells, Urine Rare /hpf (0-2); Squamous Epithelial Cells Few /hpf (Few); White Blood Cells, Urine Not Seen /hpf (0-5)
--- NOTE | 2020-06-01 05:01 | NUR ---
SHIFT SUMMARY PT NEW ED ADMIT THIS EVENING. ADMIT DX INTRACTABLE VOMITING. NO N/V SINCE ADMISSION. PT HAS ALSO DENIED ANY ABD PAIN. SLIGHT TENDERNESS TO ALL ABD QUADRANTS WHEN PALPATED. PT A/O. PLEASANT AND COOPERATIVE. CONTINUOUS IV FLUIDS INFUSING. PT SLEPT MUCH OF THE NIGHT. VITAL SIGNS STABLE. NO ACUTE CHANGES THIS SHIFT. WILL CONTINUE TO MONITOR.
[2020-06-01 05:17] LABS: BASOPHILS ABSOLUTE AUTO 0.05 K/mm3 (0.00-0.23); BASOPHILS PERCENT AUTO 0 % (0-2); EOSINOPHILS ABSOLUTE AUTO 0.17 K/mm3 (0.00-0.68); EOSINOPHILS PERCENT AUTO 1 % (0-6); Hematocrit 35.3 % (33.0-51.0); Hemoglobin 11.1 g/dL (11.5-16.0); IMMATURE GRAN ABSOLUTE AUTO 0.07 K/mm3 (0.00-0.10); IMMATURE GRAN PERCENT AUTO 0 % (0-1); LYMPHOCYTES ABSOLUTE AUTO 4.74 K/mm3 (0.84-5.20); LYMPHOCYTES PERCENT AUTO 28 % (21-46); MONOCYTES ABSOLUTE AUTO 1.43 K/mm3 (0.16-1.47); MONOCYTES PERCENT AUTO 9 % (4-13); Mean Corpuscular HGB 26.8 pg (26.0-34.0); Mean Corpuscular HGB Conc 31.4 g/dL (31.5-36.5); Mean Corpuscular Volume 85 fL (80-100); Mean Platelet Volume 9.7 fL (9.1-12.4); NEUTROPHILS ABSOLUTE AUTO 10.41 K/mm3 (1.96-9.15); NEUTROPHILS PERCENT AUTO 62 % (41-73); Platelet Count 406 K/mm3 (150-400); RDW Coefficient Variation 13.8 % (11.7-14.2); Red Blood Cell Count 4.14 M/mm3 (3.80-5.20); White Blood Cell Count 16.87 K/mm3 (4.00-11.30)
[2020-06-01 05:46] LABS: Alanine Aminotransfer (ALT/SGP 23 U/L (12-78); Albumin/Globulin Ratio 0.9 (0.8-1.8); Alk Phos 61 U/L (50-136); Anion Gap 7 mmol/L (6-16); Aspartate Aminotrans (AST/SGOT 11 U/L (12-37); Bilirubin, Total 0.6 mg/dL (0.1-1.0); Blood Urea Nitrogen 6 mg/dL (8-24); Bun/Creatinine Ratio 12.2 (12.0-20.0); CO2, Blood 23 mmol/L (21-32); Calcium, Blood 8.1 mg/dL (8.5-10.1); Chloride, Blood 110 mmol/L (98-108); Creatinine, Blood 0.49 mg/dL (0.40-1.00); Globulin, Blood 3.2 g/dL (2.2-4.0); Glomerular Filtration Rate >60 (60-); Glucose, Blood 94 mg/dL (70-99); Potassium, Blood 3.4 mmol/L (3.5-5.5); Sodium, Blood 140 mmol/L (136-145)
[2020-06-01 05:48] LABS: Total Protein, Blood 6.2 g/dL (6.4-8.2)
--- NOTE | 2020-06-01 18:25 | NUR ---
SHIFT SUMMARY NO ACUTE CHANGES THIS SHIFT. PATIENT IS ALERT, ORIENTED, INDEPENDENT IN HER ROOM. NAUSEA MOST OF SHIFT. EMESIS X3. HOT SHOWERS HELPED. SHE HAS ONLY BEEN ABLE TO SIP CLEARS AND HAVE 1/4 BANANA OVER 1 HR. IV ZOFRAN X1. BED LOW AND LOCKED, CALL LIGHT WITHIN REACH. WILL CONT TO MONITOR AND REPORT TO NIGHT SIFT.
--- NOTE | 2020-06-02 03:57 | NUR ---
SHIFT SUMMARY ADMITTED FOR INTRACTABLE VOMITING. FULL CODE. HOPEFUL FOR DC TODAY. POSSIBLE N/V FROM MARIJUANA USE, ERNESTO CLARKE TEAR - NOW RESOLVED. NO N/V THIS SHIFT. HOT SHOWERS SEEM TO EASE THOSE SYMPTOMS
[2020-06-02] MEDS ORDERED: ACET325 PO (09:27)
[2020-06-02] MEDS ORDERED: PROM25 PO (09:27)
--- NOTE | 2020-06-02 12:02 | NUR ---
PATIENT DISCHARGED TO HOME VIA TAXI. IV SALINE LOCK REMOVED WITHOUT INCIDENT. PATIENT VERBALIZED UNDERSTANDING OF D/C INSTRUCTIONS. WAS NOT VOMITING AT TIME OF D/C. LEFT UNIT VIA W/C AT 1135.
[2020-06-02] MEDS ORDERED: Cefpodoxime Pr200 MG PO (21:58)
== END 2020-06-02 11:48 | disposition home or self-care (01) ==
LOC: ER 16:38 → MEDS 16:39
PROVIDERS: Emergency Medicine; ADMIT Internal Medicine
DX: G43.A1 Cyclical vomiting, in migraine, intractable (principal); D72.829 Elevated white blood cell count, unspecified; K21.9 Gastro-esophageal reflux disease without esophagitis; E87.6 Hypokalemia; F32.9 Major depressive disorder, single episode, unspecified; F41.9 Anxiety disorder, unspecified; F43.10 Post-traumatic stress disorder, unspecified; F12.21 Cannabis dependence, in remission; Z91.5 Personal history of self-harm; Z87.891 Personal history of nicotine dependence
CPT/HCPCS: 36415; 80053; 81001; 83690; 84703; 85025; 96361; 96374; 96375; 96376; 99284-25; A9270; G0378; J1200; J1630; J2060; J2405; J2550; J3480; J7030

== ENCOUNTER 2020-06-02 18:30 | Observation (INO) | payer OTHER ==
[~2020-06-02] VITALS: Ht 172.7 cm; Wt 79.3 kg
[~2020-06-02 18:30] MED LIST changes: +ABILIFY MYCITE2 MG PO; +ACET325 PO; +HYDPAM50 PO; +OMEP20ER PO; +PRAZ5 PO; +Reglan10 MG PO; +TOPI50 PO
[2020-06-02 19:05] LABS: BASOPHILS ABSOLUTE AUTO 0.04 K/mm3 (0.00-0.23); BASOPHILS PERCENT AUTO 0 % (0-2); EOSINOPHILS PERCENT AUTO 0 % (0-6); Hematocrit 42.9 % (33.0-51.0); Hemoglobin 13.5 g/dL (11.5-16.0); IMMATURE GRAN ABSOLUTE AUTO 0.06 K/mm3 (0.00-0.10); IMMATURE GRAN PERCENT AUTO 0 % (0-1); LYMPHOCYTES ABSOLUTE AUTO 1.75 K/mm3 (0.84-5.20); LYMPHOCYTES PERCENT AUTO 10 % (21-46); MONOCYTES ABSOLUTE AUTO 0.86 K/mm3 (0.16-1.47); MONOCYTES PERCENT AUTO 5 % (4-13); Mean Corpuscular HGB 26.6 pg (26.0-34.0); Mean Corpuscular HGB Conc 31.5 g/dL (31.5-36.5); Mean Corpuscular Volume 84 fL (80-100); Mean Platelet Volume 9.3 fL (9.1-12.4); NEUTROPHILS PERCENT AUTO 85 % (41-73); Platelet Count 516 K/mm3 (150-400); RDW Coefficient Variation 13.8 % (11.7-14.2); RDW Standard Deviation 42.5 fL (35.1-46.3); Red Blood Cell Count 5.08 M/mm3 (3.80-5.20); White Blood Cell Count 18.21 K/mm3 (4.00-11.30)
[2020-06-02 19:23] LABS: Alanine Aminotransfer (ALT/SGP 34 U/L (12-78); Albumin, Blood 4.3 g/dL (3.4-5.0); Alk Phos 80 U/L (50-136); Anion Gap 9 mmol/L (6-16); Aspartate Aminotrans (AST/SGOT 26 U/L (12-37); Bilirubin, Total 0.6 mg/dL (0.1-1.0); Blood Urea Nitrogen 12 mg/dL (8-24); CO2, Blood 21 mmol/L (21-32); Calcium, Blood 9.6 mg/dL (8.5-10.1); Chloride, Blood 106 mmol/L (98-108); Creatinine, Blood 0.67 mg/dL (0.40-1.00); Globulin, Blood 4.4 g/dL (2.2-4.0); Glomerular Filtration Rate >60 (60-); Glucose, Blood 96 mg/dL (70-99); Potassium, Blood 3.9 mmol/L (3.5-5.5); Sodium, Blood 136 mmol/L (136-145)
[2020-06-02 20:29] LABS: Total Protein, Blood 8.7 g/dL (6.4-8.2)
[2020-06-02 21:24] LABS: Source, Urine Clean Catch
[2020-06-02 21:26] LABS: Appearance, Urine Clear (Clear); Bilirubin, Urine Neg (Neg); Blood, Urine 4+ (Neg); Color, Urine Yellow (P-Yellow); Glucose Qualitative, Urine Neg (Neg); Ketones, Urine 4+ (Neg); Leukocyte Esterase, Urine Neg (Neg); Nitrite, Urine Neg (Neg); Protein, Urine 2+ (Neg); Urobilinogen, Urine 1+ (Normal)
[2020-06-02 21:33] LABS: Bacteria Mod /hpf; Mucus Light (0-Heavy); Red Blood Cells, Urine 0-2 /hpf (0-2); Squamous Epithelial Cells Few /hpf (Few); White Blood Cells, Urine 0-2 /hpf (0-5)
[2020-06-02] MEDS ORDERED: Cefpodoxime Pr200 MG PO (21:58)
--- NOTE | 2020-06-03 01:10 | NUR ---
REPORT RECEIVED FROM ANNELED RN. PT TRANSPORTED TO MEDICAL FLOOR VIA GURNEY, AMBULATED SELF TO BED, STEADY GAIT. NO ACUTE DISTRESS NOTED AT THIS TIME. ORIENTED TO ROOM AND UNIT, VS TAKEN. CALL LIGHT, POSSESSIONS IN REACH, BROUGHT PT AN ICE WATER AND POPSICLE. DENIES FURTHER NEEDS AT THIS TIME. CONTINUE TO MONITOR.
--- NOTE | 2020-06-03 04:04 | NUR ---
SHIFT SUMMARY PT ASLEEP, NO ACUTE NEEDS ASSESSED AT THIS TIME. NO EPISODES OF N/V AT THIS TIME, PT APPEARS COMFORTABLE. VS REVIEWED, WNL. CALL LIGHT, POSSESSIONS IN REACH, WILL CONTINUE TO MONITOR UNTIL REPORT GIVEN TO DAY RN.
[2020-06-03 04:56] LABS: BASOPHILS ABSOLUTE AUTO 0.04 K/mm3 (0.00-0.23); BASOPHILS PERCENT AUTO 0 % (0-2); EOSINOPHILS ABSOLUTE AUTO 0.16 K/mm3 (0.00-0.68); EOSINOPHILS PERCENT AUTO 1 % (0-6); Hematocrit 35.8 % (33.0-51.0); Hemoglobin 11.3 g/dL (11.5-16.0); IMMATURE GRAN ABSOLUTE AUTO 0.07 K/mm3 (0.00-0.10); IMMATURE GRAN PERCENT AUTO 1 % (0-1); LYMPHOCYTES ABSOLUTE AUTO 4.51 K/mm3 (0.84-5.20); LYMPHOCYTES PERCENT AUTO 29 % (21-46); MONOCYTES ABSOLUTE AUTO 1.53 K/mm3 (0.16-1.47); MONOCYTES PERCENT AUTO 10 % (4-13); Mean Corpuscular HGB 26.9 pg (26.0-34.0); Mean Corpuscular HGB Conc 31.6 g/dL (31.5-36.5); Mean Corpuscular Volume 85 fL (80-100); Mean Platelet Volume 9.5 fL (9.1-12.4); NEUTROPHILS ABSOLUTE AUTO 9.12 K/mm3 (1.96-9.15); NEUTROPHILS PERCENT AUTO 59 % (41-73); Platelet Count 433 K/mm3 (150-400); RDW Coefficient Variation 13.8 % (11.7-14.2); RDW Standard Deviation 42.7 fL (35.1-46.3); White Blood Cell Count 15.43 K/mm3 (4.00-11.30)
[2020-06-03 05:16] LABS: Anion Gap 8 mmol/L (6-16); Blood Urea Nitrogen 10 mg/dL (8-24); Bun/Creatinine Ratio 17.1 (12.0-20.0); CO2, Blood 23 mmol/L (21-32); Calcium, Blood 8.3 mg/dL (8.5-10.1); Chloride, Blood 110 mmol/L (98-108); Creatinine, Blood 0.59 mg/dL (0.40-1.00); Glomerular Filtration Rate >60 (60-); Glucose, Blood 88 mg/dL (70-99); Potassium, Blood 3.4 mmol/L (3.5-5.5); Sodium, Blood 141 mmol/L (136-145)
--- NOTE | 2020-06-03 13:07 | NUR ---
SHE IS SLEEPING NOW. VERY LITTLE CLEAR LIQUID PO INTAKE. WHEN AWAKE, SHE HEAVES OR VOMITS. I HAVE SEEN GOLD BILE EMESIS AND BLOOD TINGED WATERY EMESIS. SHE HAS HAD ANTIEMETICS AND HAS TAKEN 1 HOT SHOWER SO FAR. SHE WHO PREFERS TO BE CALLED HONEY AND THE USE OF THE PRONOUN HE HAS BEEN VERY PLEASANT. HE NOW HAS A KPAD ON HIS ABD FOR COMFORT BECAUSE HE C/I MID ABD PAIN JUST ABOVE HIS NAVEL. HE WALKS WELL. IVF'S CONTINUE AND HE TOOK A SUPP FOR CONSTIPATION. HE PUT IT IN HIMSELF. NO RESULTS THAT I AM AWARE OF YET.
--- NOTE | 2020-06-03 15:40 | NUR ---
SHE CONTINUES TO VOMIT SMALL AMTS RED/BROWN EMESIS. I EMISIS LOOKED COFFEE GROUND. SHE HAS C/O CONTINUED ABD PAIN IN ADDITION TO THE N/V. CALL OUT TO MD FOR PAIN MEDICINE, AND POSSIBLY CHANGING HER PROTONIX TO IV.
--- NOTE | 2020-06-03 16:34 | NUR ---
SHE IS BACK TO SLEEP AFTER A ONE TIME DOSE OF IV DILAUDID.
--- NOTE | 2020-06-03 18:14 | NUR ---
HE HAS BEEN SLEEPING COMFORTABLY SINCE THE 1 TIME DOSE OF DILAUDID. USUALLY HAS SMALL AMTS OF EMESIS WHENEVER AWAKE. IT HAS DARK BLOOD ON BROWN. PO PROTONIX CHANGED TO IV PEPCID. SHE RECEIVED 3 DIFFERENT ANTIEMETICS MULTIPLE TIMES TODAY. IVF'S CONTINUE. SHE SAYS SHE HAS TOO MUCH PAIN AND NAUSEA TO DRINK CL'S OR EAT SALTINES.
--- NOTE | 2020-06-04 03:01 | NUR ---
20 year old Transgender Female to Male has continued intractable N & vomiting. Continues with IVF NS & not tolerating diet despite 3 different antiemetics IV. PT had 1 coffeground appearing thin emisis & several angel yellow emisis. DR Matta called & discussed N & V despite antiemetic & 1 x dose of 50 mg benadryl RX. PT had popcycle sips water & some ice chips. Had dulcolax supp IN on day shift with sm BM reported by PT. Hypoactive BS upper abd quads x 2 , hyperactive lower bs x 2 . Using kpad for abd pain with helpful effect. Will administer IV benadryl x 1 & assess effect.
[2020-06-04 05:12] LABS: BASOPHILS ABSOLUTE AUTO 0.05 K/mm3 (0.00-0.23); BASOPHILS PERCENT AUTO 0 % (0-2); EOSINOPHILS ABSOLUTE AUTO 0.07 K/mm3 (0.00-0.68); EOSINOPHILS PERCENT AUTO 0 % (0-6); Hematocrit 38.9 % (33.0-51.0); Hemoglobin 12.1 g/dL (11.5-16.0); IMMATURE GRAN ABSOLUTE AUTO 0.05 K/mm3 (0.00-0.10); IMMATURE GRAN PERCENT AUTO 0 % (0-1); LYMPHOCYTES ABSOLUTE AUTO 2.28 K/mm3 (0.84-5.20); LYMPHOCYTES PERCENT AUTO 15 % (21-46); MONOCYTES PERCENT AUTO 8 % (4-13); Mean Corpuscular HGB 26.2 pg (26.0-34.0); Mean Corpuscular HGB Conc 31.1 g/dL (31.5-36.5); Mean Corpuscular Volume 84 fL (80-100); Mean Platelet Volume 9.4 fL (9.1-12.4); NEUTROPHILS ABSOLUTE AUTO 12.01 K/mm3 (1.96-9.15); NEUTROPHILS PERCENT AUTO 77 % (41-73); Platelet Count 434 K/mm3 (150-400); RDW Coefficient Variation 13.6 % (11.7-14.2); RDW Standard Deviation 42.1 fL (35.1-46.3); Red Blood Cell Count 4.61 M/mm3 (3.80-5.20); White Blood Cell Count 15.66 K/mm3 (4.00-11.30)
[2020-06-04 05:33] LABS: Anion Gap 11 mmol/L (6-16); Blood Urea Nitrogen 7 mg/dL (8-24); CO2, Blood 20 mmol/L (21-32); Calcium, Blood 8.4 mg/dL (8.5-10.1); Chloride, Blood 105 mmol/L (98-108); Creatinine, Blood 0.54 mg/dL (0.40-1.00); Glomerular Filtration Rate >60 (60-); Glucose, Blood 81 mg/dL (70-99); Potassium, Blood 3.3 mmol/L (3.5-5.5); Sodium, Blood 136 mmol/L (136-145)
--- NOTE | 2020-06-04 12:29 | NUR ---
SHE HAS A FULL LIQUID LUNCH IN FRONT OF HER NOW. SHE AND TALKED AND SHE WANTS TO GO HOME. SHE HAS SLEPT MOST OF THE DAY SO FAR AFTER RECEIVING BENADRYL IV AROUND 3 AM. SHE HAS RECEIVED REGLAN AND COMPAZINE FROM ME. SHE HAS HAD A FEW SIPS OF WATER. 90 MIN AGO WHEN I OFFERED HER OTHER CL'S SHE DIDN'T WANT ANY SAYING THAT THEY JUST MAKE HER THROW UP SOON THEY HIT HER STOMACH. SHE SAYS SHE'D RATHER JUST THROW UP WATER. SHE VOIDED 1000 MLS AFTER WAKING UP. SHE HAS BEEN WEARING THE SCD'S. THE K-RIDER IS INFUSING. IT WAS SLOWED DOWN FOR AWHILE PER HER REQUEST D/T PAIN AT HER IV SITE. IT IS WNL THOUGH. IT IS BACK TO THE PRESCRIBED RATE NOW. WILL SEE HOW SHE DOES WITH A LITTLE FL'S. SHE/HE LOOKS GENERALLY PUFFY. WILL MONITOR HER WHILE HER POTASSIUM IS INFUSING.
--- NOTE | 2020-06-04 13:05 | NUR ---
HE WAS SMILING BETWEEN 'S ROUNDS AND HER LUNCH ARRIVAL. SHE DRANK 1/2 A CUP OF HERBAL TEA, 3 BITES OF VANILLA PUDDING AND 2 SIPS OF SOUP. HE WASN'T SMILING ANYMORE AND I GAVE HIM ZOFRAN. IT IS TOO SOON FOR REGLAN OR COMPAZINE.
[2020-06-04] MEDS ORDERED: FAMO20 PO (13:19)
[2020-06-04] MEDS ORDERED: BISA10S PR (13:19)
[2020-06-04] MEDS ORDERED: METO5A PO (13:20)
[2020-06-04] MEDS ORDERED: ONDA4ODT PO (13:21)
[2020-06-04] MEDS ORDERED: Prochlorperazin10 MG PO (13:25)
[2020-06-04] MEDS ORDERED: POTCHL20ER PO (13:25)
--- NOTE | 2020-06-04 15:15 | NUR ---
K-RIDER IS ALMOST DONE. SHE CONTINUES TO HEAVE WITH SMALL AMT OF EMESIS. SMALL AMT OF OLD BLOOD IN OTHERWISE CLEAR EMESIS. SHE SAYS SHE STILL WANTS TO GO HOME.
--- NOTE | 2020-06-04 15:35 | NUR ---
DISCHARGED TO HOME WITH BELONGINGS AND INSTRUCTIONS. SHE VOMITED 175 MLS BILE JUST BEFORE LEAVING INSPITE OF ANTIEMETICS ATC. SHE/HE REALLY WANTED TO GO HOME. HE CALLED A CAB. IT WAS OUT FRONT. HE SAYS HE HAS A ROOMMATE. HE UNDERSTANDS TO TAKE PHENERGAN OR COMPAZINE Q6 HRS, NOT BOTH. I EXPLAINED THAT THEY ARE IN THE SAME FAMILY AND CANNOT BE DOUBLED UP.
[2020-06-05] MEDS ORDERED: PHENERGAN25 MG PR (14:50)
[2020-06-05] MEDS ORDERED: DICY20 PO (14:50)
[2020-06-05] MEDS ORDERED: PROM25 PO (14:50)
[2020-06-05] MEDS ORDERED: ONDA4 PO (14:50)
== END 2020-06-04 15:30 | disposition home or self-care (01) ==
LOC: ER 18:30 → MEDS 18:31
PROVIDERS: Emergency Medicine; Internal Medicine; ADMIT Family Medicine
DX: K92.0 Hematemesis (principal); D72.829 Elevated white blood cell count, unspecified; D47.3 Essential (hemorrhagic) thrombocythemia; E87.6 Hypokalemia; F12.10 Cannabis abuse, uncomplicated; Z88.2 Allergy status to sulfonamides; Z88.8 Allergy status to other drugs, medicaments and biological substances; Z79.899 Other long term (current) drug therapy; Z20.822 Contact with and (suspected) exposure to COVID-19
CPT/HCPCS: 36415; 80048; 80053; 81001; 83690; 85025; 87086; 96374; 96375; 96376; 99285-25; A9270; G0378; J0780; J1170; J1200; J2405; J2765; J3480; J7030

== ENCOUNTER 2020-06-05 09:12 | Emergency (ER) | payer OTHER ==
[~2020-06-05] VITALS: Ht 167.6 cm; Wt 77.1 kg
[~2020-06-05 09:12] MED LIST changes: +BISA10S PR; +Cefpodoxime Pr200 MG PO; +METO5A PO; +ONDA4ODT PO; +POTCHL20ER PO; +Prochlorperazin10 MG PO
[2020-06-05 10:12] LABS: BASOPHILS ABSOLUTE AUTO 0.05 K/mm3 (0.00-0.23); BASOPHILS PERCENT AUTO 0 % (0-2); EOSINOPHILS ABSOLUTE AUTO 0.02 K/mm3 (0.00-0.68); EOSINOPHILS PERCENT AUTO 0 % (0-6); Hematocrit 45.4 % (33.0-51.0); Hemoglobin 14.2 g/dL (11.5-16.0); IMMATURE GRAN ABSOLUTE AUTO 0.06 K/mm3 (0.00-0.10); IMMATURE GRAN PERCENT AUTO 0 % (0-1); LYMPHOCYTES ABSOLUTE AUTO 1.75 K/mm3 (0.84-5.20); LYMPHOCYTES PERCENT AUTO 9 % (21-46); MONOCYTES ABSOLUTE AUTO 1.19 K/mm3 (0.16-1.47); MONOCYTES PERCENT AUTO 6 % (4-13); Mean Corpuscular HGB 27.3 pg (26.0-34.0); Mean Corpuscular HGB Conc 31.3 g/dL (31.5-36.5); Mean Corpuscular Volume 87 fL (80-100); Mean Platelet Volume 9.5 fL (9.1-12.4); NEUTROPHILS ABSOLUTE AUTO 15.85 K/mm3 (1.96-9.15); NEUTROPHILS PERCENT AUTO 84 % (41-73); Platelet Count 503 K/mm3 (150-400); RDW Coefficient Variation 14.1 % (11.7-14.2); RDW Standard Deviation 43.9 fL (35.1-46.3); Red Blood Cell Count 5.21 M/mm3 (3.80-5.20); White Blood Cell Count 18.92 K/mm3 (4.00-11.30)
[2020-06-05 10:27] LABS: International Normalized Ratio 1.09; Prothrombin Time Results 11.6 Sec (9.7-11.5)
[2020-06-05 10:31] LABS: Alanine Aminotransfer (ALT/SGP 26 U/L (12-78); Albumin/Globulin Ratio 0.9 (0.8-1.8); Alk Phos 82 U/L (50-136); Anion Gap 11 mmol/L (6-16); Aspartate Aminotrans (AST/SGOT 10 U/L (12-37); Bilirubin, Total 0.7 mg/dL (0.1-1.0); Blood Urea Nitrogen 12 mg/dL (8-24); Bun/Creatinine Ratio 20.2 (12.0-20.0); CO2, Blood 23 mmol/L (21-32); Calcium, Blood 9.2 mg/dL (8.5-10.1); Chloride, Blood 103 mmol/L (98-108); Creatinine, Blood 0.59 mg/dL (0.40-1.00); Globulin, Blood 4.5 g/dL (2.2-4.0); Glomerular Filtration Rate >60 (60-); Glucose, Blood 107 mg/dL (70-99); Potassium, Blood 3.5 mmol/L (3.5-5.5); Sodium, Blood 137 mmol/L (136-145); Total Protein, Blood 8.5 g/dL (6.4-8.2)
[2020-06-05] MEDS ORDERED: DICY20 PO (14:50)
[2020-06-05] MEDS ORDERED: PROM25 PO (14:50)
[2020-06-05] MEDS ORDERED: ONDA4 PO (14:50)
[2020-06-05] MEDS ORDERED: PHENERGAN25 MG PR (14:50)
== END 2020-06-05 15:00 | disposition home or self-care (01) ==
LOC: ER 09:12
PROVIDERS: Emergency Medicine
DX: R11.15 Cyclical vomiting syndrome unrelated to migraine (principal); Z88.2 Allergy status to sulfonamides; Z88.8 Allergy status to other drugs, medicaments and biological substances; Z87.891 Personal history of nicotine dependence; Z79.899 Other long term (current) drug therapy
CPT/HCPCS: 36415; 76705; 80053; 83690; 84703; 85025; 85610; 85730; 96361; 96374; 96375; 96376; 99284-25; C9113; J1200; J1630; J2405; J2550; J7120

== ENCOUNTER 2020-06-07 12:45 | Emergency (ER) | payer OTHER ==
[~2020-06-07] VITALS: Ht 172.7 cm; Wt 77.1 kg
[~2020-06-07 12:45] MED LIST changes: +DICY20 PO; +ONDA4 PO
[2020-06-07 13:49] LABS: BASOPHILS ABSOLUTE AUTO 0.06 K/mm3 (0.00-0.23); BASOPHILS PERCENT AUTO 0 % (0-2); EOSINOPHILS ABSOLUTE AUTO 0.02 K/mm3 (0.00-0.68); EOSINOPHILS PERCENT AUTO 0 % (0-6); Hematocrit 45.4 % (33.0-51.0); Hemoglobin 14.7 g/dL (11.5-16.0); IMMATURE GRAN PERCENT AUTO 0 % (0-1); LYMPHOCYTES ABSOLUTE AUTO 2.28 K/mm3 (0.84-5.20); LYMPHOCYTES PERCENT AUTO 10 % (21-46); MONOCYTES ABSOLUTE AUTO 1.98 K/mm3 (0.16-1.47); MONOCYTES PERCENT AUTO 8 % (4-13); Mean Corpuscular HGB 27.2 pg (26.0-34.0); Mean Corpuscular HGB Conc 32.4 g/dL (31.5-36.5); Mean Corpuscular Volume 84 fL (80-100); Mean Platelet Volume 9.6 fL (9.1-12.4); NEUTROPHILS ABSOLUTE AUTO 19.02 K/mm3 (1.96-9.15); NEUTROPHILS PERCENT AUTO 81 % (41-73); Platelet Count 547 K/mm3 (150-400); RDW Coefficient Variation 14.6 % (11.7-14.2); RDW Standard Deviation 43.3 fL (35.1-46.3); White Blood Cell Count 23.46 K/mm3 (4.00-11.30)
[2020-06-07 14:14] LABS: Alanine Aminotransfer (ALT/SGP 25 U/L (12-78); Albumin, Blood 4.1 g/dL (3.4-5.0); Albumin/Globulin Ratio 0.9 (0.8-1.8); Alk Phos 79 U/L (50-136); Anion Gap 11 mmol/L (6-16); Aspartate Aminotrans (AST/SGOT 32 U/L (12-37); Bilirubin, Total 0.8 mg/dL (0.1-1.0); Blood Urea Nitrogen 14 mg/dL (8-24); Bun/Creatinine Ratio 27.3 (12.0-20.0); CO2, Blood 26 mmol/L (21-32); Calcium, Blood 9.5 mg/dL (8.5-10.1); Chloride, Blood 98 mmol/L (98-108); Creatinine, Blood 0.51 mg/dL (0.40-1.00); Globulin, Blood 4.5 g/dL (2.2-4.0); Glomerular Filtration Rate >60 (60-); Glucose, Blood 93 mg/dL (70-99); Potassium, Blood 3.9 mmol/L (3.5-5.5); Sodium, Blood 135 mmol/L (136-145); Total Protein, Blood 8.6 g/dL (6.4-8.2)
[2020-06-07] MEDS ORDERED: HALO5 PO (15:53)
== END 2020-06-07 15:58 | disposition home or self-care (01) ==
LOC: ER 12:45
PROVIDERS: Physician Assistant
DX: R11.15 Cyclical vomiting syndrome unrelated to migraine (principal); K21.9 Gastro-esophageal reflux disease without esophagitis; Z88.2 Allergy status to sulfonamides; Z88.8 Allergy status to other drugs, medicaments and biological substances; Z79.899 Other long term (current) drug therapy
CPT/HCPCS: 36415; 80053; 85025; 96361; 96374; 96375; 99284-25; J1200; J1630; J2405; J2765; J7030

== ENCOUNTER 2020-06-09 16:13 | Observation (INO) | payer OTHER ==
[~2020-06-09] VITALS: Ht 167.6 cm; Wt 75.8 kg
[~2020-06-09 16:13] MED LIST changes: +HALO5 PO
[2020-06-09 16:59] LABS: BASOPHILS ABSOLUTE AUTO 0.06 K/mm3 (0.00-0.23); BASOPHILS PERCENT AUTO 0 % (0-2); EOSINOPHILS ABSOLUTE AUTO 0.01 K/mm3 (0.00-0.68); EOSINOPHILS PERCENT AUTO 0 % (0-6); Hematocrit 45.6 % (33.0-51.0); IMMATURE GRAN ABSOLUTE AUTO 0.07 K/mm3 (0.00-0.10); IMMATURE GRAN PERCENT AUTO 0 % (0-1); LYMPHOCYTES ABSOLUTE AUTO 1.26 K/mm3 (0.84-5.20); LYMPHOCYTES PERCENT AUTO 6 % (21-46); MONOCYTES ABSOLUTE AUTO 0.93 K/mm3 (0.16-1.47); MONOCYTES PERCENT AUTO 5 % (4-13); Mean Corpuscular HGB 27.7 pg (26.0-34.0); Mean Corpuscular HGB Conc 32.9 g/dL (31.5-36.5); Mean Corpuscular Volume 84 fL (80-100); Mean Platelet Volume 9.5 fL (9.1-12.4); NEUTROPHILS ABSOLUTE AUTO 17.85 K/mm3 (1.96-9.15); NEUTROPHILS PERCENT AUTO 89 % (41-73); Platelet Count 550 K/mm3 (150-400); RDW Coefficient Variation 14.6 % (11.7-14.2); RDW Standard Deviation 43.8 fL (35.1-46.3); Red Blood Cell Count 5.41 M/mm3 (3.80-5.20); White Blood Cell Count 20.18 K/mm3 (4.00-11.30)
[2020-06-09 17:25] LABS: Alanine Aminotransfer (ALT/SGP 29 U/L (12-78); Albumin, Blood 4.4 g/dL (3.4-5.0); Albumin/Globulin Ratio 1.1 (0.8-1.8); Alk Phos 80 U/L (50-136); Anion Gap 7 mmol/L (6-16); Aspartate Aminotrans (AST/SGOT 11 U/L (12-37); Bilirubin, Total 0.7 mg/dL (0.1-1.0); Blood Urea Nitrogen 9 mg/dL (8-24); Bun/Creatinine Ratio 18.3 (12.0-20.0); CO2, Blood 28 mmol/L (21-32); Calcium, Blood 9.5 mg/dL (8.5-10.1); Chloride, Blood 100 mmol/L (98-108); Creatinine, Blood 0.49 mg/dL (0.40-1.00); Globulin, Blood 3.9 g/dL (2.2-4.0); Glomerular Filtration Rate >60 (60-); Glucose, Blood 110 mg/dL (70-99); Potassium, Blood 3.1 mmol/L (3.5-5.5); Sodium, Blood 135 mmol/L (136-145); Total Protein, Blood 8.3 g/dL (6.4-8.2)
[2020-06-10 01:39] LABS: Source, Urine Voided
[2020-06-10 01:44] LABS: Bilirubin, Urine Neg (Neg); Blood, Urine 2+ (Neg); Glucose Qualitative, Urine Neg (Neg); Ketones, Urine 4+ (Neg); Leukocyte Esterase, Urine Neg (Neg); Nitrite, Urine Neg (Neg); Protein, Urine 1+ (Neg); Urobilinogen, Urine 2+ (Normal)
[2020-06-10 01:51] LABS: Appearance, Urine Clear (Clear); Color, Urine Yellow (P-Yellow); Squamous Epithelial Cells Few /hpf (Few); White Blood Cells, Urine 0-2 /hpf (0-5)
[2020-06-10 01:52] LABS: Bacteria Mod /hpf
[2020-06-10 02:06] LABS: U Amphetamine Screen Not Detected; U Barbituate Screen Not Detected; U Benzodiazapine Screen Not Detected; U Buprenorphine Screen Not Detected; U Cannabinoids Screen DETECTED; U Cocaine Screen Not Detected; U Methadone Screen Not Detected; U Methamphetamine Screen Not Detected; U Opiates Screen Not Detected; U Oxycodone Screen Not Detected; U Phencyclidine Screen Not Detected; U Propoxyphene Screen Not Detected
[2020-06-10 02:24] LABS: Influenza A, PCR Negative (NEGATIVE); Influenza B, PCR Negative (NEGATIVE); Resp Syncytial Virus, PCR Negative (NEGATIVE); SARS-Cov-2 (COVID-19) PCR, MMC Negative (NEGATIVE)
--- NOTE | 2020-06-10 03:05 | NUR ---
PT HERE VIA JENNIFER FROM ER. PT ABLE TO STAND AND TRANSFER HERSELF TO PCU BED. PT IS ALERT AND ORIENTED. PT REPORTS CONTINUES WITH NAUSEA - WILL MEDICATE PER ORDERS. ORIENTED TO ROOM/CALL LIGHT. PT REPORTS MILD ABDOMINAL PAIN, HYPOACTIVE BT'S. IV TO R HAND, SL'D. IV TO LEFT AC - SL'D. BED IN LOW POSITION. CALL LIGHT WITHIN REACH. PT DENIES ANY OTHER COMPLAINTS OF PAIN, CP, OR SOB, OR DISCOMFORT. SEE EMAR FOR FOLLOW-UP MEDICATIONS GIVEN.
[2020-06-10 04:21] LABS: BASOPHILS ABSOLUTE AUTO 0.05 K/mm3 (0.00-0.23); BASOPHILS PERCENT AUTO 0 % (0-2); EOSINOPHILS ABSOLUTE AUTO 0.03 K/mm3 (0.00-0.68); EOSINOPHILS PERCENT AUTO 0 % (0-6); Hematocrit 38.3 % (33.0-51.0); Hemoglobin 12.3 g/dL (11.5-16.0); IMMATURE GRAN ABSOLUTE AUTO 0.08 K/mm3 (0.00-0.10); IMMATURE GRAN PERCENT AUTO 0 % (0-1); LYMPHOCYTES ABSOLUTE AUTO 3.25 K/mm3 (0.84-5.20); LYMPHOCYTES PERCENT AUTO 17 % (21-46); MONOCYTES ABSOLUTE AUTO 1.52 K/mm3 (0.16-1.47); MONOCYTES PERCENT AUTO 8 % (4-13); Mean Corpuscular HGB 27.4 pg (26.0-34.0); Mean Corpuscular HGB Conc 32.1 g/dL (31.5-36.5); Mean Corpuscular Volume 85 fL (80-100); Mean Platelet Volume 9.7 fL (9.1-12.4); NEUTROPHILS ABSOLUTE AUTO 14.79 K/mm3 (1.96-9.15); NEUTROPHILS PERCENT AUTO 75 % (41-73); Platelet Count 437 K/mm3 (150-400); RDW Coefficient Variation 14.6 % (11.7-14.2); RDW Standard Deviation 45.1 fL (35.1-46.3); Red Blood Cell Count 4.49 M/mm3 (3.80-5.20); White Blood Cell Count 19.72 K/mm3 (4.00-11.30)
[2020-06-10 04:45] LABS: Alanine Aminotransfer (ALT/SGP 17 U/L (12-78); Albumin, Blood 3.2 g/dL (3.4-5.0); Alk Phos 63 U/L (50-136); Anion Gap 9 mmol/L (6-16); Aspartate Aminotrans (AST/SGOT 9 U/L (12-37); Bilirubin, Total 0.6 mg/dL (0.1-1.0); Blood Urea Nitrogen 5 mg/dL (8-24); Bun/Creatinine Ratio 10.2 (12.0-20.0); CO2, Blood 26 mmol/L (21-32); Calcium, Blood 8.5 mg/dL (8.5-10.1); Chloride, Blood 104 mmol/L (98-108); Creatinine, Blood 0.49 mg/dL (0.40-1.00); Globulin, Blood 3.3 g/dL (2.2-4.0); Glomerular Filtration Rate >60 (60-); Glucose, Blood 100 mg/dL (70-99); Potassium, Blood 2.9 mmol/L (3.5-5.5); Sodium, Blood 139 mmol/L (136-145); Total Protein, Blood 6.5 g/dL (6.4-8.2)
--- NOTE | 2020-06-10 06:12 | NUR ---
NO ACUTE CHANGES SINCE ADMIT THIS AM. PT HAS BEEN SLEEPING AFTER PHENERGAN IV GIVEN. 1ST BAG OF KCL IVPB INFUSING WITHOUT COMPLICATIONS TO L AC IV SITE. NO EMESIS SINCE ADMIT. PT IS NPO. CALL LIGHT WITHIN REACH. BED ALARM ON FOR SAFETY.
--- NOTE | 2020-06-10 18:23 | NUR ---
PT SUMMARY: PT RMEAINED ALERT AND ORIENTED AT BASELINE, INDEPENDENT IN THE ROOM, VITALS HAS BEEN STABLE, NO ACUTE EVENTS FOR THE SHIFT. PT STILL HAS NAUSEA ALL THROUGH OUT THE SHIFT EMESIS X4 MANAGED BY REGLAN PO ON SCHEDULE BEFORE MEALS, PROMETHAZINE IV AND ZOFRAN Q6HRS. DIET RESUMED TODAY PT STARTED ON CLEAR LIQUID DIET, PT WAS ABLE TO TOLERATE AND KEPT SOME DOWN. PT HAD A SHOWER TODAY, PT HAS BEEN RESTING IN BED MOST OF THE SHIFT. NOTIFY DR ROMAN ABOUT PT'S CONCERN ABOUT PCP'S ADVISE OF GETTING A SCOPE DONE UP IN [facility] AND IF PT IS ABLE TO GET TRANSFERRED FROM THIS HOSPITAL DIRECTLY TO [facility], DR ROMAN CONSULTED DR CONTEH FOR FURTHER EVALUATION. DR CONTEH CURRENTLY IN THE ROOM TALKING TOT HE PT, AWAITING FOR PLANS AND ORDERS. FOR POSS DC IN AM IF STABLE. WILL MONITOR UNTIL END OF SHIFT.
[2020-06-11 04:08] LABS: Hematocrit 39.8 % (33.0-51.0); Hemoglobin 12.4 g/dL (11.5-16.0); Mean Corpuscular HGB 26.6 pg (26.0-34.0); Mean Corpuscular HGB Conc 31.2 g/dL (31.5-36.5); Mean Corpuscular Volume 85 fL (80-100); Mean Platelet Volume 9.7 fL (9.1-12.4); Platelet Count 416 K/mm3 (150-400); RDW Coefficient Variation 14.8 % (11.7-14.2); RDW Standard Deviation 45.3 fL (35.1-46.3); Red Blood Cell Count 4.66 M/mm3 (3.80-5.20); White Blood Cell Count 11.21 K/mm3 (4.00-11.30)
[2020-06-11 04:25] LABS: Anion Gap 8 mmol/L (6-16); Blood Urea Nitrogen 6 mg/dL (8-24); CO2, Blood 25 mmol/L (21-32); Calcium, Blood 8.9 mg/dL (8.5-10.1); Chloride, Blood 106 mmol/L (98-108); Creatinine, Blood 0.55 mg/dL (0.40-1.00); Glomerular Filtration Rate >60 (60-); Glucose, Blood 87 mg/dL (70-99); Potassium, Blood 3.2 mmol/L (3.5-5.5); Sodium, Blood 139 mmol/L (136-145)
--- NOTE | 2020-06-11 05:28 | NUR ---
SHIFT SUMMARY PT SLEPT T/O SHIFT. PT ALERT AND ORIENTED X 4. HR STABLE. BP STABLE. REPORTS NO CP OR PRESSURE. NPO SINCE 0100 FOR POSSIBLE PROCEDURE IN AM. PT IND IN ROOM. WILL CONTINUE TO MONITOR UNTIL REPORT GIVEN TO SETH DEVLIN.
--- NOTE | 2020-06-11 12:23 | NUR ---
06/11/20 1223 Lashae Denson History, Chart, Medications and Allergies reviewed before start of procedure.PATIENT DETERMINED TO BE ASA APPROPRIATE FOR PROPOFOL SEDATION PRIOR TO START OF PROCEDURE BY .MONITOR INTACT WITH CONTINUOUS PULSE OXIMETRY AND INTERMITTENT BP.3-LEAD EKG REVIEWED WITH PHYSICIAN PRIOR TO START OF PROCEDURE.O2 VIA N/C INTACT THROUGHOUT SEDATION/PROCEDURE.
--- NOTE | 2020-06-11 12:48 | NUR ---
PT GAVE PERMISSION FOR CARE AT 1130 ON 06/11/20
[2020-06-11] MEDS ORDERED: SUCR1 PO (16:55)
--- NOTE | 2020-06-11 17:30 | NUR ---
PT TO DISCHARGE HOME. IV REMOVED, NO SS OF INFECTION NOTED. PT DRESSED BY SELF. NURSE WENT OVER MEDICATIONS WITH PT. PT CALLED CAB AND NURSE WHEELED HER DOWN TO TAXI.
== END 2020-06-11 17:26 | disposition home or self-care (01) ==
LOC: ER 16:13 → PCU 16:14 → ER 06-10 01:17 → PCU 06-10 01:17
PROVIDERS: Emergency Medicine; Internal Medicine; Internal Medicine Gastroenterology; Physician Assistant; ADMIT Internal Medicine
PROC: 0DB68ZX Excision of Stomach, Via Natural or Artificial Opening Endoscopic, Diagnostic (ICD-10-PCS; 2020-06-11)
PROC: 0DB58ZX Excision of Esophagus, Via Natural or Artificial Opening Endoscopic, Diagnostic (ICD-10-PCS; principal; 2020-06-11 12:00)
DX: K21.00 Gastro-esophageal reflux disease with esophagitis, without bleeding (principal); K44.9 Diaphragmatic hernia without obstruction or gangrene; R11.15 Cyclical vomiting syndrome unrelated to migraine; F12.90 Cannabis use, unspecified, uncomplicated; E87.6 Hypokalemia; F43.10 Post-traumatic stress disorder, unspecified; F41.8 Other specified anxiety disorders; Z90.49 Acquired absence of other specified parts of digestive tract; Z79.899 Other long term (current) drug therapy; Z88.2 Allergy status to sulfonamides; Z88.8 Allergy status to other drugs, medicaments and biological substances
CPT/HCPCS: 0241U; 36415; 71045; 74177; 80048; 80053; 81001; 81025; 83605; 84132; 85025; 85027; 87086; 88305; 88312; 88342; 96360; 96361; 96374-59; 96375; 96376; 99285-25; A9270; G0378; J1630; J2250; J2405; J2550; J2704; J2765; J3010; J3480; J7030; J7050; J7120; Q9967

== ENCOUNTER 2020-11-07 00:17 | Emergency (ER) | payer OTHER ==
[~2020-11-07] VITALS: Ht 165.1 cm; Wt 61.2 kg
[~2020-11-07 00:17] MED LIST changes: +SUCR1 PO
== END 2020-11-07 02:38 | disposition home or self-care (01) ==
LOC: ER 00:17
DX: S06.0X0A Concussion without loss of consciousness, initial encounter (principal); S16.1XXA Strain of muscle, fascia and tendon at neck level, initial encounter; Z88.2 Allergy status to sulfonamides; Z88.8 Allergy status to other drugs, medicaments and biological substances; Z79.899 Other long term (current) drug therapy; Z87.891 Personal history of nicotine dependence; V49.50XA Passenger injured in collision with unspecified motor vehicles in traffic accident, initial encounter; Y92.410 Unspecified street and highway as the place of occurrence of the external cause
CPT/HCPCS: 99283; A9270

== ENCOUNTER 2021-02-07 19:31 | Emergency (ER) | payer OTHER ==
[~2021-02-07] VITALS: Ht 167.6 cm; Wt 79.4 kg
[2021-02-07 22:37] LABS: BASOPHILS ABSOLUTE AUTO 0.05 K/mm3 (0.00-0.23); BASOPHILS PERCENT AUTO 0 % (0-2); EOSINOPHILS ABSOLUTE AUTO 0.48 K/mm3 (0.00-0.68); EOSINOPHILS PERCENT AUTO 4 % (0-6); Hematocrit 39.1 % (33.0-51.0); Hemoglobin 12.9 g/dL (11.5-16.0); Mean Corpuscular Volume 85 fL (80-100); Mean Platelet Volume 9.5 fL (9.1-12.4); Platelet Count 521 K/mm3 (150-400); RDW Coefficient Variation 14.7 % (11.7-14.2); RDW Standard Deviation 45.2 fL (35.1-46.3); White Blood Cell Count 11.89 K/mm3 (4.00-11.30)
[2021-02-07 22:39] LABS: IMMATURE GRAN ABSOLUTE AUTO 0.04 K/mm3 (0.00-0.10); IMMATURE GRAN PERCENT AUTO 0 % (0-1); LYMPHOCYTES ABSOLUTE AUTO 4.18 K/mm3 (0.84-5.20); LYMPHOCYTES PERCENT AUTO 35 % (21-46); MONOCYTES ABSOLUTE AUTO 0.93 K/mm3 (0.16-1.47); MONOCYTES PERCENT AUTO 8 % (4-13); NEUTROPHILS ABSOLUTE AUTO 6.21 K/mm3 (1.96-9.15); NEUTROPHILS PERCENT AUTO 52 % (41-73)
[2021-02-07 22:58] LABS: Alanine Aminotransfer (ALT/SGP 32 U/L (12-78); Albumin, Blood 3.7 g/dL (3.4-5.0); Alk Phos 66 U/L (50-136); Anion Gap 6 mmol/L (6-16); Aspartate Aminotrans (AST/SGOT 13 U/L (12-37); Bilirubin, Total 0.4 mg/dL (0.1-1.0); Blood Urea Nitrogen 11 mg/dL (8-24); Bun/Creatinine Ratio 15.2 (12.0-20.0); CO2, Blood 23 mmol/L (21-32); Calcium, Blood 8.8 mg/dL (8.5-10.1); Chloride, Blood 110 mmol/L (98-108); Creatinine, Blood 0.73 mg/dL (0.40-1.00); Globulin, Blood 3.8 g/dL (2.2-4.0); Glomerular Filtration Rate >60 (60-); Glucose, Blood 90 mg/dL (70-99); Potassium, Blood 3.6 mmol/L (3.5-5.5); Sodium, Blood 139 mmol/L (136-145); Total Protein, Blood 7.5 g/dL (6.4-8.2); Troponin I <0.015 ng/mL (0.000-0.040)
== END 2021-02-08 01:04 | disposition home or self-care (01) ==
LOC: ER 19:31
PROVIDERS: Emergency Medicine
DX: E86.0 Dehydration (principal); R11.15 Cyclical vomiting syndrome unrelated to migraine; K21.9 Gastro-esophageal reflux disease without esophagitis; Z88.8 Allergy status to other drugs, medicaments and biological substances; Z88.2 Allergy status to sulfonamides; Z79.899 Other long term (current) drug therapy
CPT/HCPCS: 36415; 80053; 81025; 84484; 85025; 93005; 93010; 96372; 99284-25; J1630; J7030

== ENCOUNTER 2021-02-23 19:09 | Emergency (ER) | payer OTHER ==
[~2021-02-23] VITALS: Ht 167.6 cm; Wt 77.1 kg
[2021-02-23] MEDS ORDERED: PROM25 PO (19:47)
[2021-02-23] MEDS ORDERED: ONDA4ODT SL (19:48)
[2021-02-23 20:16] LABS: BASOPHILS ABSOLUTE AUTO 0.11 K/mm3 (0.00-0.23); BASOPHILS PERCENT AUTO 1 % (0-2); EOSINOPHILS ABSOLUTE AUTO 0.81 K/mm3 (0.00-0.68); EOSINOPHILS PERCENT AUTO 4 % (0-6); Hematocrit 43.7 % (33.0-51.0); Hemoglobin 14.8 g/dL (11.5-16.0); IMMATURE GRAN ABSOLUTE AUTO 0.11 K/mm3 (0.00-0.10); IMMATURE GRAN PERCENT AUTO 1 % (0-1); LYMPHOCYTES ABSOLUTE AUTO 1.35 K/mm3 (0.84-5.20); LYMPHOCYTES PERCENT AUTO 6 % (21-46); MONOCYTES ABSOLUTE AUTO 1.26 K/mm3 (0.16-1.47); MONOCYTES PERCENT AUTO 6 % (4-13); Mean Corpuscular HGB 28.5 pg (26.0-34.0); Mean Corpuscular HGB Conc 33.9 g/dL (31.5-36.5); Mean Corpuscular Volume 84 fL (80-100); Mean Platelet Volume 9.4 fL (9.1-12.4); NEUTROPHILS ABSOLUTE AUTO 19.26 K/mm3 (1.96-9.15); NEUTROPHILS PERCENT AUTO 84 % (41-73); Platelet Count 549 K/mm3 (150-400); RDW Coefficient Variation 14.5 % (11.7-14.2); RDW Standard Deviation 44.3 fL (35.1-46.3); Red Blood Cell Count 5.19 M/mm3 (3.80-5.20)
[2021-02-23 20:44] LABS: Alanine Aminotransfer (ALT/SGP 22 U/L (12-78); Albumin, Blood 4.2 g/dL (3.4-5.0); Albumin/Globulin Ratio 0.9 (0.8-1.8); Alk Phos 81 U/L (50-136); Anion Gap 9 mmol/L (6-16); Aspartate Aminotrans (AST/SGOT 22 U/L (12-37); Bilirubin, Total 0.7 mg/dL (0.1-1.0); Blood Urea Nitrogen 9 mg/dL (8-24); CO2, Blood 21 mmol/L (21-32); Calcium, Blood 9.8 mg/dL (8.5-10.1); Chloride, Blood 109 mmol/L (98-108); Creatinine, Blood 0.69 mg/dL (0.40-1.00); Globulin, Blood 4.6 g/dL (2.2-4.0); Glomerular Filtration Rate >60 (60-); Glucose, Blood 115 mg/dL (70-99); Potassium, Blood 3.8 mmol/L (3.5-5.5); Sodium, Blood 139 mmol/L (136-145); Total Protein, Blood 8.8 g/dL (6.4-8.2)
== END 2021-02-23 22:55 | disposition home or self-care (01) ==
LOC: ER 19:09
PROVIDERS: Physician Assistant
DX: R11.2 Nausea with vomiting, unspecified (principal); K21.9 Gastro-esophageal reflux disease without esophagitis; Z88.2 Allergy status to sulfonamides; Z79.899 Other long term (current) drug therapy
CPT/HCPCS: 36415; 80053; 84703; 85025; 96361; 96374; 99284; A9270; J1630; J7030

== ENCOUNTER 2021-02-25 18:35 | Emergency (ER) | payer OTHER ==
[~2021-02-25] VITALS: Ht 167.6 cm; Wt 77.1 kg
[~2021-02-25 18:35] MED LIST changes: +ONDA4ODT SL
[2021-02-25 19:29] LABS: BASOPHILS ABSOLUTE AUTO 0.07 K/mm3 (0.00-0.23); BASOPHILS PERCENT AUTO 0 % (0-2); EOSINOPHILS ABSOLUTE AUTO 0.02 K/mm3 (0.00-0.68); EOSINOPHILS PERCENT AUTO 0 % (0-6); Hematocrit 42.7 % (33.0-51.0); Hemoglobin 14.4 g/dL (11.5-16.0); IMMATURE GRAN ABSOLUTE AUTO 0.07 K/mm3 (0.00-0.10); IMMATURE GRAN PERCENT AUTO 0 % (0-1); LYMPHOCYTES ABSOLUTE AUTO 2.22 K/mm3 (0.84-5.20); LYMPHOCYTES PERCENT AUTO 12 % (21-46); MONOCYTES ABSOLUTE AUTO 1.54 K/mm3 (0.16-1.47); MONOCYTES PERCENT AUTO 8 % (4-13); Mean Corpuscular HGB 28.4 pg (26.0-34.0); Mean Corpuscular HGB Conc 33.7 g/dL (31.5-36.5); Mean Corpuscular Volume 84 fL (80-100); Mean Platelet Volume 9.3 fL (9.1-12.4); NEUTROPHILS PERCENT AUTO 79 % (41-73); Platelet Count 546 K/mm3 (150-400); RDW Coefficient Variation 14.7 % (11.7-14.2); RDW Standard Deviation 44.9 fL (35.1-46.3); Red Blood Cell Count 5.07 M/mm3 (3.80-5.20); White Blood Cell Count 18.32 K/mm3 (4.00-11.30)
[2021-02-25 19:45] LABS: Alanine Aminotransfer (ALT/SGP 25 U/L (12-78); Albumin, Blood 4.4 g/dL (3.4-5.0); Alk Phos 77 U/L (50-136); Anion Gap 9 mmol/L (6-16); Aspartate Aminotrans (AST/SGOT 17 U/L (12-37); Bilirubin, Total 0.5 mg/dL (0.1-1.0); Blood Urea Nitrogen 22 mg/dL (8-24); Bun/Creatinine Ratio 33.1 (12.0-20.0); CO2, Blood 29 mmol/L (21-32); Calcium, Blood 9.6 mg/dL (8.5-10.1); Chloride, Blood 99 mmol/L (98-108); Creatinine, Blood 0.66 mg/dL (0.40-1.00); Globulin, Blood 4.6 g/dL (2.2-4.0); Glomerular Filtration Rate >60 (60-); Glucose, Blood 106 mg/dL (70-99); Potassium, Blood 3.2 mmol/L (3.5-5.5); Sodium, Blood 137 mmol/L (136-145)
[2021-02-25 21:51] LABS: Source, Urine Clean Catch
[2021-02-25 21:59] LABS: Bilirubin, Urine Neg (Neg); Blood, Urine 4+ (Neg); Glucose Qualitative, Urine Neg (Neg); Ketones, Urine 4+ (Neg); Leukocyte Esterase, Urine 1+ (Neg); Nitrite, Urine Neg (Neg); Protein, Urine 2+ (Neg); Specific Gravity, Urine 1.015 (1.003-1.022); Urobilinogen, Urine 1+ (Normal); pH, Urine 6.5 (5.0-8.0)
[2021-02-25 22:06] LABS: Appearance, Urine Clear (Clear); Color, Urine Yellow (P-Yellow)
[2021-02-25 22:07] LABS: Amorphous Light (0-Heavy); Bacteria Few /hpf; Mucus Light (0-Heavy); Red Blood Cells, Urine 25-50 /hpf (0-2); Squamous Epithelial Cells Few /hpf (Few)
[2021-02-25] MEDS ORDERED: PROM12.5S PR (22:27)
== END 2021-02-25 23:05 | disposition home or self-care (01) ==
LOC: ER 18:35
PROVIDERS: Physician Assistant
DX: E87.6 Hypokalemia (principal); D72.829 Elevated white blood cell count, unspecified; R11.15 Cyclical vomiting syndrome unrelated to migraine; R10.84 Generalized abdominal pain; K21.9 Gastro-esophageal reflux disease without esophagitis; Z88.8 Allergy status to other drugs, medicaments and biological substances; Z88.2 Allergy status to sulfonamides; Z79.899 Other long term (current) drug therapy; Z87.891 Personal history of nicotine dependence
CPT/HCPCS: 36415; 80053; 81001; 81025; 83690; 85025; A9270; J1630; J1790; J1885; J2405; J3480; J7030

== ENCOUNTER 2021-03-01 15:38 | Emergency (ER) | payer OTHER ==
[~2021-03-01] VITALS: Ht 167.6 cm; Wt 68.0 kg
[~2021-03-01 15:38] MED LIST changes: -ONDA4ODT SL; +PROM12.5S PR
[2021-03-01 16:37] LABS: BASOPHILS ABSOLUTE AUTO 0.05 K/mm3 (0.00-0.23); BASOPHILS PERCENT AUTO 0 % (0-2); EOSINOPHILS ABSOLUTE AUTO 0.24 K/mm3 (0.00-0.68); EOSINOPHILS PERCENT AUTO 2 % (0-6); Hematocrit 43.5 % (33.0-51.0); Hemoglobin 14.5 g/dL (11.5-16.0); IMMATURE GRAN ABSOLUTE AUTO 0.07 K/mm3 (0.00-0.10); IMMATURE GRAN PERCENT AUTO 0 % (0-1); LYMPHOCYTES ABSOLUTE AUTO 2.54 K/mm3 (0.84-5.20); LYMPHOCYTES PERCENT AUTO 16 % (21-46); MONOCYTES PERCENT AUTO 8 % (4-13); Mean Corpuscular HGB Conc 33.3 g/dL (31.5-36.5); Mean Corpuscular Volume 84 fL (80-100); Mean Platelet Volume 9.4 fL (9.1-12.4); NEUTROPHILS ABSOLUTE AUTO 12.15 K/mm3 (1.96-9.15); NEUTROPHILS PERCENT AUTO 74 % (41-73); Platelet Count 580 K/mm3 (150-400); RDW Coefficient Variation 13.7 % (11.7-14.2); Red Blood Cell Count 5.18 M/mm3 (3.80-5.20); White Blood Cell Count 16.35 K/mm3 (4.00-11.30)
[2021-03-01 16:57] LABS: Alanine Aminotransfer (ALT/SGP 60 U/L (12-78); Albumin, Blood 3.9 g/dL (3.4-5.0); Alk Phos 68 U/L (50-136); Anion Gap 12 mmol/L (6-16); Aspartate Aminotrans (AST/SGOT 21 U/L (12-37); Bilirubin, Total 0.9 mg/dL (0.1-1.0); Blood Urea Nitrogen 10 mg/dL (8-24); Bun/Creatinine Ratio 16.2 (12.0-20.0); CO2, Blood 22 mmol/L (21-32); Calcium, Blood 9.3 mg/dL (8.5-10.1); Chloride, Blood 101 mmol/L (98-108); Creatinine, Blood 0.62 mg/dL (0.40-1.00); Globulin, Blood 4.1 g/dL (2.2-4.0); Glomerular Filtration Rate >60 (60-); Glucose, Blood 91 mg/dL (70-99); Potassium, Blood 3.2 mmol/L (3.5-5.5); Sodium, Blood 135 mmol/L (136-145)
[2021-03-01 20:36] LABS: U Amphetamine Screen Not Detected; U Barbituate Screen Not Detected; U Benzodiazapine Screen Not Detected; U Buprenorphine Screen Not Detected; U Cannabinoids Screen DETECTED; U Cocaine Screen Not Detected; U Methadone Screen Not Detected; U Methamphetamine Screen Not Detected; U Opiates Screen Not Detected; U Oxycodone Screen Not Detected; U Phencyclidine Screen Not Detected; U Propoxyphene Screen Not Detected
[2021-03-01] MEDS ORDERED: PROM25 PO (21:01)
[2021-03-01] MEDS ORDERED: K-Dur10 MEQ PO (21:01)
[2021-03-02] MEDS ORDERED: PROM25 PO (22:34)
[2021-03-02] MEDS ORDERED: ONDA4ODT SL (22:34)
[2021-03-02] MEDS ORDERED: PROM12.5S PR (22:35)
[2021-03-02] MEDS ORDERED: ABILIFY MYCITE2 M2 PO (22:52)
[2021-03-02] MEDS ORDERED: FLUO10 PO (22:52)
[2021-03-02] MEDS ORDERED: FAMO20 PO (22:54)
[2021-03-02] MEDS ORDERED: HYDPAM50 PO (22:54)
== END 2021-03-01 21:17 | disposition home or self-care (01) ==
LOC: ER 15:38
PROVIDERS: Emergency Medicine; Physician Assistant
DX: E87.6 Hypokalemia (principal); R11.2 Nausea with vomiting, unspecified; K21.9 Gastro-esophageal reflux disease without esophagitis; Z88.2 Allergy status to sulfonamides; Z88.8 Allergy status to other drugs, medicaments and biological substances; Z79.899 Other long term (current) drug therapy
CPT/HCPCS: 36415; 80053; 84702; 85025; 96374; 96375; 99284-25; J1200; J1630; J2405; J7030

== ENCOUNTER 2021-03-02 17:47 | Observation (INO) | payer OTHER ==
[~2021-03-02] VITALS: Ht 167.6 cm; Wt 74.2 kg
[~2021-03-02 17:47] MED LIST changes: +K-Dur10 MEQ PO
[2021-03-02 18:27] LABS: BASOPHILS ABSOLUTE AUTO 0.07 K/mm3 (0.00-0.23); BASOPHILS PERCENT AUTO 0 % (0-2); EOSINOPHILS ABSOLUTE AUTO 0.14 K/mm3 (0.00-0.68); EOSINOPHILS PERCENT AUTO 1 % (0-6); Hematocrit 43.8 % (33.0-51.0); Hemoglobin 14.7 g/dL (11.5-16.0); IMMATURE GRAN ABSOLUTE AUTO 0.07 K/mm3 (0.00-0.10); IMMATURE GRAN PERCENT AUTO 0 % (0-1); LYMPHOCYTES ABSOLUTE AUTO 3.57 K/mm3 (0.84-5.20); LYMPHOCYTES PERCENT AUTO 20 % (21-46); MONOCYTES ABSOLUTE AUTO 1.06 K/mm3 (0.16-1.47); MONOCYTES PERCENT AUTO 6 % (4-13); Mean Corpuscular HGB 28.3 pg (26.0-34.0); Mean Corpuscular HGB Conc 33.6 g/dL (31.5-36.5); Mean Corpuscular Volume 84 fL (80-100); Mean Platelet Volume 9.5 fL (9.1-12.4); NEUTROPHILS ABSOLUTE AUTO 13.16 K/mm3 (1.96-9.15); NEUTROPHILS PERCENT AUTO 73 % (41-73); Platelet Count 616 K/mm3 (150-400); RDW Coefficient Variation 13.7 % (11.7-14.2); RDW Standard Deviation 42.4 fL (35.1-46.3); Red Blood Cell Count 5.19 M/mm3 (3.80-5.20); White Blood Cell Count 18.07 K/mm3 (4.00-11.30)
[2021-03-02 18:44] LABS: Alanine Aminotransfer (ALT/SGP 48 U/L (12-78); Albumin, Blood 3.9 g/dL (3.4-5.0); Alk Phos 72 U/L (50-136); Anion Gap 9 mmol/L (6-16); Aspartate Aminotrans (AST/SGOT 17 U/L (12-37); Bilirubin, Total 0.9 mg/dL (0.1-1.0); Blood Urea Nitrogen 12 mg/dL (8-24); Bun/Creatinine Ratio 18.1 (12.0-20.0); CO2, Blood 26 mmol/L (21-32); Calcium, Blood 9.3 mg/dL (8.5-10.1); Chloride, Blood 101 mmol/L (98-108); Creatinine, Blood 0.66 mg/dL (0.40-1.00); Globulin, Blood 4.1 g/dL (2.2-4.0); Glomerular Filtration Rate >60 (60-); Glucose, Blood 95 mg/dL (70-99); Potassium, Blood 3.2 mmol/L (3.5-5.5); Sodium, Blood 136 mmol/L (136-145)
[2021-03-02 19:25] LABS: Source, Urine Clean Catch
[2021-03-02 19:30] LABS: Appearance, Urine Hazy (Clear); Bilirubin, Urine Neg (Neg); Blood, Urine 2+ (Neg); Color, Urine Yellow (P-Yellow); Glucose Qualitative, Urine Neg (Neg); Ketones, Urine 4+ (Neg); Leukocyte Esterase, Urine Neg (Neg); Nitrite, Urine Neg (Neg); Protein, Urine 1+ (Neg); Specific Gravity, Urine 1.015 (1.003-1.022); Urobilinogen, Urine 3+ (Normal)
[2021-03-02 19:49] LABS: Amorphous Heavy (0-Heavy); Bacteria Few /hpf; Red Blood Cells, Urine 0-2 /hpf (0-2); Squamous Epithelial Cells Few /hpf (Few); White Blood Cells, Urine 0-2 /hpf (0-5)
[2021-03-02] MEDS ORDERED: PROM25 PO (22:34)
[2021-03-02] MEDS ORDERED: ONDA4ODT SL (22:34)
[2021-03-02] MEDS ORDERED: PROM12.5S PR (22:35)
[2021-03-02] MEDS ORDERED: ABILIFY MYCITE2 M2 PO (22:52)
[2021-03-02] MEDS ORDERED: FLUO10 PO (22:52)
[2021-03-02] MEDS ORDERED: HYDPAM50 PO (22:54)
[2021-03-02] MEDS ORDERED: FAMO20 PO (22:54)
[2021-03-03 04:43] LABS: BASOPHILS ABSOLUTE AUTO 0.05 K/mm3 (0.00-0.23); BASOPHILS PERCENT AUTO 0 % (0-2); EOSINOPHILS ABSOLUTE AUTO 0.21 K/mm3 (0.00-0.68); EOSINOPHILS PERCENT AUTO 1 % (0-6); Hematocrit 42.6 % (33.0-51.0); IMMATURE GRAN ABSOLUTE AUTO 0.07 K/mm3 (0.00-0.10); IMMATURE GRAN PERCENT AUTO 0 % (0-1); LYMPHOCYTES ABSOLUTE AUTO 4.38 K/mm3 (0.84-5.20); LYMPHOCYTES PERCENT AUTO 25 % (21-46); MONOCYTES ABSOLUTE AUTO 1.24 K/mm3 (0.16-1.47); MONOCYTES PERCENT AUTO 7 % (4-13); Mean Corpuscular HGB 27.9 pg (26.0-34.0); Mean Corpuscular HGB Conc 32.9 g/dL (31.5-36.5); Mean Corpuscular Volume 85 fL (80-100); Mean Platelet Volume 9.8 fL (9.1-12.4); NEUTROPHILS ABSOLUTE AUTO 11.52 K/mm3 (1.96-9.15); NEUTROPHILS PERCENT AUTO 66 % (41-73); Platelet Count 585 K/mm3 (150-400); RDW Coefficient Variation 13.9 % (11.7-14.2); RDW Standard Deviation 43.4 fL (35.1-46.3); Red Blood Cell Count 5.01 M/mm3 (3.80-5.20); White Blood Cell Count 17.47 K/mm3 (4.00-11.30)
[2021-03-03 05:14] LABS: Alanine Aminotransfer (ALT/SGP 40 U/L (12-78); Albumin, Blood 3.3 g/dL (3.4-5.0); Albumin/Globulin Ratio 0.9 (0.8-1.8); Alk Phos 65 U/L (50-136); Anion Gap 10 mmol/L (6-16); Aspartate Aminotrans (AST/SGOT 13 U/L (12-37); Bilirubin, Total 0.8 mg/dL (0.1-1.0); Blood Urea Nitrogen 10 mg/dL (8-24); Bun/Creatinine Ratio 17.9 (12.0-20.0); CO2, Blood 23 mmol/L (21-32); Calcium, Blood 8.9 mg/dL (8.5-10.1); Chloride, Blood 104 mmol/L (98-108); Creatinine, Blood 0.56 mg/dL (0.40-1.00); Globulin, Blood 3.8 g/dL (2.2-4.0); Glomerular Filtration Rate >60 (60-); Glucose, Blood 78 mg/dL (70-99); Potassium, Blood 3.5 mmol/L (3.5-5.5); Sodium, Blood 137 mmol/L (136-145); Total Protein, Blood 7.1 g/dL (6.4-8.2)
--- NOTE | 2021-03-03 18:02 | NUR ---
SUMMARY PT RESTING QUETLY IN BED, INDEPENDENT IN THE ROOM, PT HAS BEEN PLEASANT AND COOPERATIVE WITH CARE T/O THE DAY, MED PER EMAR FOR PAIN AND NAUSEA, PT ABLE TO GET UP AND SHOWER, VSS, WILL CONT TO MONITOR
--- NOTE | 2021-03-04 06:22 | NUR ---
PATIENT IS ASLEEP LYING IN BED. RR EVEN AND UNLABORED. PATIENT'S NAUSEA AND VOMITING EPISODES HAVE IMPROVED. PT HAD ONE EPISODE OF VOMITING AT 0500 BUT REPORTS FEELING BETTER THAN BEFORE. CALL LIGHT WITHIN REACH.
[2021-03-04 08:05] LABS: Anion Gap 10 mmol/L (6-16); Blood Urea Nitrogen 6 mg/dL (8-24); Bun/Creatinine Ratio 11.8 (12.0-20.0); CO2, Blood 21 mmol/L (21-32); Calcium, Blood 9.1 mg/dL (8.5-10.1); Chloride, Blood 101 mmol/L (98-108); Creatinine, Blood 0.51 mg/dL (0.40-1.00); Glomerular Filtration Rate >60 (60-); Glucose, Blood 78 mg/dL (70-99); Potassium, Blood 3.8 mmol/L (3.5-5.5); Sodium, Blood 132 mmol/L (136-145)
[2021-03-04 09:11] LABS: BASOPHILS ABSOLUTE AUTO 0.06 K/mm3 (0.00-0.23); BASOPHILS PERCENT AUTO 0 % (0-2); EOSINOPHILS ABSOLUTE AUTO 0.16 K/mm3 (0.00-0.68); EOSINOPHILS PERCENT AUTO 1 % (0-6); Hematocrit 40.6 % (33.0-51.0); Hemoglobin 13.6 g/dL (11.5-16.0); IMMATURE GRAN ABSOLUTE AUTO 0.05 K/mm3 (0.00-0.10); IMMATURE GRAN PERCENT AUTO 0 % (0-1); LYMPHOCYTES PERCENT AUTO 18 % (21-46); MONOCYTES ABSOLUTE AUTO 1.16 K/mm3 (0.16-1.47); MONOCYTES PERCENT AUTO 8 % (4-13); Mean Corpuscular HGB Conc 33.5 g/dL (31.5-36.5); Mean Corpuscular Volume 84 fL (80-100); Mean Platelet Volume 9.4 fL (9.1-12.4); NEUTROPHILS ABSOLUTE AUTO 10.98 K/mm3 (1.96-9.15); NEUTROPHILS PERCENT AUTO 73 % (41-73); Platelet Count 528 K/mm3 (150-400); RDW Coefficient Variation 13.8 % (11.7-14.2); RDW Standard Deviation 42.1 fL (35.1-46.3); Red Blood Cell Count 4.85 M/mm3 (3.80-5.20); White Blood Cell Count 15.11 K/mm3 (4.00-11.30)
--- NOTE | 2021-03-04 11:21 | NUR ---
PT ALERT ORIENTED X 4.PT C/O OF N/S MEDICATED PER EMAR,PT DENIES PAIN AND SHORTNESS OF BREATH,PT HAS NO ACUTE EVENTS T/O SHIFT.PT DISCHARGE HOME,FAMILY AT BEDSIDE,RN EXPLAIN THE DISCHARGE TO PT AND GAVE A TEACHING WELL,BOTH PT AND FAMILY VERBALIZED UNDERSTANDING,AND LEAVE THE MEDICAL FLOOR WITH ALL BELONGINGS.
[2021-03-06 03:11] LABS: CHLAMYDIA TRACHOMATIS, NAA Negative (Negative)
== END 2021-03-04 11:19 | disposition home or self-care (01) ==
LOC: ER 17:47 → MEDS 17:48
PROVIDERS: Emergency Medicine; Family Medicine; Hospitalist; Student in an Organized Health Care Education/Training Program; ADMIT Internal Medicine
DX: R11.2 Nausea with vomiting, unspecified (principal); F41.9 Anxiety disorder, unspecified; F32.A Depression, unspecified; K21.9 Gastro-esophageal reflux disease without esophagitis; E86.0 Dehydration; E87.6 Hypokalemia; R82.4 Acetonuria; D72.829 Elevated white blood cell count, unspecified; F43.10 Post-traumatic stress disorder, unspecified; Z88.2 Allergy status to sulfonamides; Z88.8 Allergy status to other drugs, medicaments and biological substances; Z87.891 Personal history of nicotine dependence
CPT/HCPCS: 36415; 80048; 80053; 81001; 83036; 84443; 84703; 85025; 96361; 96365; 96366; 96372; 96374; 96375; 96376; 99284-25; A9270; C9113; G0378; J1650; J1790; J2405; J2550; J2765; J3010; J3480; J7030

== ENCOUNTER 2021-03-06 14:03 | Emergency (ER) | payer OTHER ==
[~2021-03-06] VITALS: Ht 167.6 cm; Wt 71.7 kg
[~2021-03-06 14:03] MED LIST changes: +ABILIFY MYCITE2 M2 PO; +ONDA4ODT SL
[2021-03-06 15:15] LABS: BASOPHILS ABSOLUTE AUTO 0.04 K/mm3 (0.00-0.23); BASOPHILS PERCENT AUTO 0 % (0-2); EOSINOPHILS ABSOLUTE AUTO 0.04 K/mm3 (0.00-0.68); EOSINOPHILS PERCENT AUTO 0 % (0-6); Hematocrit 47.7 % (33.0-51.0); Hemoglobin 16.2 g/dL (11.5-16.0); IMMATURE GRAN ABSOLUTE AUTO 0.05 K/mm3 (0.00-0.10); IMMATURE GRAN PERCENT AUTO 0 % (0-1); LYMPHOCYTES PERCENT AUTO 12 % (21-46); MONOCYTES ABSOLUTE AUTO 1.27 K/mm3 (0.16-1.47); MONOCYTES PERCENT AUTO 8 % (4-13); Mean Corpuscular HGB 28.1 pg (26.0-34.0); Mean Corpuscular Volume 83 fL (80-100); Mean Platelet Volume 9.5 fL (9.1-12.4); NEUTROPHILS ABSOLUTE AUTO 13.57 K/mm3 (1.96-9.15); NEUTROPHILS PERCENT AUTO 80 % (41-73); Platelet Count 642 K/mm3 (150-400); RDW Coefficient Variation 14.4 % (11.7-14.2); RDW Standard Deviation 42.4 fL (35.1-46.3); Red Blood Cell Count 5.76 M/mm3 (3.80-5.20); White Blood Cell Count 16.97 K/mm3 (4.00-11.30)
[2021-03-06 15:37] LABS: Alanine Aminotransfer (ALT/SGP 29 U/L (12-78); Albumin/Globulin Ratio 0.9 (0.8-1.8); Alk Phos 70 U/L (50-136); Anion Gap 11 mmol/L (6-16); Aspartate Aminotrans (AST/SGOT 12 U/L (12-37); Bilirubin, Total 0.6 mg/dL (0.1-1.0); Blood Urea Nitrogen 13 mg/dL (8-24); Bun/Creatinine Ratio 22.3 (12.0-20.0); CO2, Blood 23 mmol/L (21-32); Calcium, Blood 9.5 mg/dL (8.5-10.1); Chloride, Blood 100 mmol/L (98-108); Creatinine, Blood 0.58 mg/dL (0.40-1.00); Globulin, Blood 4.3 g/dL (2.2-4.0); Glomerular Filtration Rate >60 (60-); Glucose, Blood 106 mg/dL (70-99); Potassium, Blood 3.6 mmol/L (3.5-5.5); Sodium, Blood 134 mmol/L (136-145); Total Protein, Blood 8.3 g/dL (6.4-8.2)
[2021-03-06] MEDS ORDERED: PROM12.5S PR (16:16)
== END 2021-03-06 16:49 | disposition home or self-care (01) ==
LOC: ER 14:03
PROVIDERS: Physician Assistant
DX: R11.15 Cyclical vomiting syndrome unrelated to migraine (principal); Z88.8 Allergy status to other drugs, medicaments and biological substances; Z88.2 Allergy status to sulfonamides; Z79.899 Other long term (current) drug therapy; Z87.891 Personal history of nicotine dependence
CPT/HCPCS: 36415; 80053; 85025; 96361; 96374; 96376; 99283-25; J2405; J7030

== ENCOUNTER 2021-04-04 15:46 | Emergency (ER) | payer OTHER ==
[~2021-04-04] VITALS: Ht 167.6 cm; Wt 77.1 kg
[2021-04-04 17:40] LABS: Calcium, Ionized (POC) 1.02 mmol/L (1.10-1.46); Chloride (POC) 97 mmol/L (98-108); Creatinine (POC) 0.6 mg/dL (0.6-1.0); Glucose (ISTAT POC) 108 mg/dL (70-99); Hemoglobin (POC) 13.9 g/dL (12.0-16.0); Potassium (POC) 3.5 mmol/L (3.5-5.5); Sodium (POC) 135 mmol/L (135-148); Total CO2 (POC) 30 mmol/L (21-32)
[2021-04-04 18:40] LABS: Source, Urine Clean Catch
[2021-04-04 18:43] LABS: Appearance, Urine Hazy (Clear); Blood, Urine 3+ (Neg); Color, Urine Yellow (P-Yellow); Glucose Qualitative, Urine Neg (Neg); Ketones, Urine 4+ (Neg); Leukocyte Esterase, Urine 1+ (Neg); Nitrite, Urine Neg (Neg); Protein, Urine 2+ (Neg); Urobilinogen, Urine 2+ (Normal)
[2021-04-04 18:54] LABS: Bilirubin, Urine 1+ (Neg)
[2021-04-04 19:11] LABS: Bacteria Mod /hpf; Squamous Epithelial Cells Many /hpf (Few)
[2021-04-04 19:12] LABS: Mucus Mod (0-Heavy)
[2021-04-04 19:13] LABS: Transitional Epithelial Cells Rare /hpf (0-Rare)
== END 2021-04-04 20:08 | disposition home or self-care (01) ==
LOC: ER 15:46
PROVIDERS: Physician Assistant
DX: R11.2 Nausea with vomiting, unspecified (principal); Z88.8 Allergy status to other drugs, medicaments and biological substances; Z88.2 Allergy status to sulfonamides; Z79.899 Other long term (current) drug therapy; Z87.891 Personal history of nicotine dependence
CPT/HCPCS: 36415; 80047; 81000; 81001; 81025; 85014; 87086; 96374; 96375; 99284-25; J0780; J1200; J1630; J1885; J7030; J7120

== ENCOUNTER 2021-04-06 15:06 | Inpatient (IN) | payer OTHER ==
[~2021-04-06] VITALS: Ht 165.1 cm; Wt 72.6 kg
[2021-04-06 15:56] LABS: BASOPHILS ABSOLUTE AUTO 0.05 K/mm3 (0.00-0.23); BASOPHILS PERCENT AUTO 0 % (0-2); EOSINOPHILS ABSOLUTE AUTO 0.01 K/mm3 (0.00-0.68); EOSINOPHILS PERCENT AUTO 0 % (0-6); Hemoglobin 14.7 g/dL (11.5-16.0); IMMATURE GRAN ABSOLUTE AUTO 0.04 K/mm3 (0.00-0.10); IMMATURE GRAN PERCENT AUTO 0 % (0-1); LYMPHOCYTES ABSOLUTE AUTO 2.52 K/mm3 (0.84-5.20); LYMPHOCYTES PERCENT AUTO 17 % (21-46); MONOCYTES ABSOLUTE AUTO 1.41 K/mm3 (0.16-1.47); MONOCYTES PERCENT AUTO 10 % (4-13); Mean Corpuscular HGB 28.2 pg (26.0-34.0); Mean Corpuscular HGB Conc 34.2 g/dL (31.5-36.5); Mean Corpuscular Volume 83 fL (80-100); Mean Platelet Volume 8.8 fL (9.1-12.4); NEUTROPHILS ABSOLUTE AUTO 10.81 K/mm3 (1.96-9.15); NEUTROPHILS PERCENT AUTO 73 % (41-73); Platelet Count 623 K/mm3 (150-400); RDW Coefficient Variation 14.7 % (11.7-14.2); RDW Standard Deviation 44.6 fL (35.1-46.3); Red Blood Cell Count 5.21 M/mm3 (3.80-5.20); White Blood Cell Count 14.84 K/mm3 (4.00-11.30)
[2021-04-06 16:21] LABS: Alanine Aminotransfer (ALT/SGP 47 U/L (12-78); Albumin, Blood 4.2 g/dL (3.4-5.0); Alk Phos 70 U/L (50-136); Anion Gap 11 mmol/L (6-16); Aspartate Aminotrans (AST/SGOT 19 U/L (12-37); Bilirubin, Total 1.1 mg/dL (0.1-1.0); Blood Urea Nitrogen 11 mg/dL (8-24); Bun/Creatinine Ratio 18.3 (12.0-20.0); CO2, Blood 28 mmol/L (21-32); Calcium, Blood 9.5 mg/dL (8.5-10.1); Chloride, Blood 94 mmol/L (98-108); Globulin, Blood 4.2 g/dL (2.2-4.0); Glomerular Filtration Rate >60 (60-); Glucose, Blood 107 mg/dL (70-99); Potassium, Blood 2.8 mmol/L (3.5-5.5); Sodium, Blood 133 mmol/L (136-145); Total Protein, Blood 8.4 g/dL (6.4-8.2)
[2021-04-06] MEDS ORDERED: COMPAZINE10 MG PO (19:17)
[2021-04-06] MEDS ORDERED: Amitriptyline H10 MG PO (19:18)
[2021-04-07 00:16] LABS: Influenza A, PCR NEGATIVE (NEGATIVE); Influenza B, PCR NEGATIVE (NEGATIVE); Resp Syncytial Virus, PCR NEGATIVE (NEGATIVE); SARS-Cov-2 (COVID-19) PCR, MMC NEGATIVE (NEGATIVE)
--- NOTE | 2021-04-07 01:14 | NUR ---
PT ARRIVED TO UNIT @ APPROX 0045. A&O X4 AND RESTING IN BED. PT ABLE TO SELF TRANSPORT TO BED W/ STEADY GAIT. MOTHER @ BEDSIDE.
[2021-04-07 02:14] LABS: BASOPHILS ABSOLUTE AUTO 0.03 K/mm3 (0.00-0.23); BASOPHILS PERCENT AUTO 0 % (0-2); EOSINOPHILS PERCENT AUTO 1 % (0-6); Hematocrit 37.8 % (33.0-51.0); Hemoglobin 12.9 g/dL (11.5-16.0); IMMATURE GRAN ABSOLUTE AUTO 0.09 K/mm3 (0.00-0.10); IMMATURE GRAN PERCENT AUTO 1 % (0-1); LYMPHOCYTES ABSOLUTE AUTO 3.46 K/mm3 (0.84-5.20); LYMPHOCYTES PERCENT AUTO 21 % (21-46); MONOCYTES ABSOLUTE AUTO 1.75 K/mm3 (0.16-1.47); MONOCYTES PERCENT AUTO 10 % (4-13); Mean Corpuscular HGB 28.4 pg (26.0-34.0); Mean Corpuscular HGB Conc 34.1 g/dL (31.5-36.5); Mean Corpuscular Volume 83 fL (80-100); Mean Platelet Volume 8.9 fL (9.1-12.4); NEUTROPHILS ABSOLUTE AUTO 11.37 K/mm3 (1.96-9.15); NEUTROPHILS PERCENT AUTO 68 % (41-73); Platelet Count 475 K/mm3 (150-400); RDW Coefficient Variation 14.6 % (11.7-14.2); RDW Standard Deviation 44.3 fL (35.1-46.3); Red Blood Cell Count 4.54 M/mm3 (3.80-5.20)
[2021-04-07 02:23] LABS: Anion Gap 8 mmol/L (6-16); Blood Urea Nitrogen 7 mg/dL (8-24); Bun/Creatinine Ratio 12.3 (12.0-20.0); CO2, Blood 28 mmol/L (21-32); Calcium, Blood 8.6 mg/dL (8.5-10.1); Chloride, Blood 101 mmol/L (98-108); Creatinine, Blood 0.57 mg/dL (0.40-1.00); Glomerular Filtration Rate >60 (60-); Glucose, Blood 73 mg/dL (70-99); Potassium, Blood 3.2 mmol/L (3.5-5.5); Sodium, Blood 137 mmol/L (136-145)
--- NOTE | 2021-04-07 02:52 | NUR ---
CALLED DR NATALIA FISHER WAS CONSULTED FOR THE ORDERED MAG IV, PT MAG WAS ELEVATED. MAG DC'ED. PO K+ DC'ED DUE TO PT N/V. IV K+ ORDERED.
--- NOTE | 2021-04-07 04:04 | NUR ---
SHIFT SUMMARY PT A&O X4 AND IN PLEASENT MOOD SINCE ARRIVAL. PT'S MOTHER @ BEDSIDE, SHE MAKES MEDICAL DECISIONS FOR PT. PT REQUESTED TO BE CALLED HONEY, STATES INSURANCE NAME HAS NOT BEEN UPDATED. PT RESTING COMFORTABLY IN BED. DR. REYES CALLED, SEE NOTE. VSS. BOWEL TONES HYPOACTIVE IN ALL 4 Q'S. CALL LIGHT W/IN REACH.
--- NOTE | 2021-04-07 10:05 | NUR ---
PT REPORTS TO THIS RN A "BURNING" PAIN T/O ABDOMEN WITH ASSOCIATED NAUSEA. RESOLVES WITH NAUSEA RESOLUTION. BOWEL SOUNDS VERY HYPOACTIVE IN ALL QUADRANTS, TENDER TO THE TOUCH IN ALL QUADRANTS WITH NO PAIN NOTED ON PALPATION. PT REPORTS LAST BOOM OVER A WEEK AND A HALF AGO, STATES THIS IS NORMAL FOR THEM OF LATE. DECREASED APPETITE RELATED TO FREQUENT NAUSEA.
--- NOTE | 2021-04-07 18:44 | NUR ---
shift summary intractable n/v pt has continued to have multiple emesis episodes t/o shift. pt continues to drink po fluids, she stated she has attempted to not drink fluids before but ends up vomiting blood, she wanted to continue with oral fluids. unable to tolerate anything else orally. nausea meds and ativan ineffective t/o shift. taking showers is the only thing she reports as effective. iv fluids infusing per emar when not in shower. pain in abdomen r/t frequent emesis.
[2021-04-08 04:37] LABS: BASOPHILS ABSOLUTE AUTO 0.05 K/mm3 (0.00-0.23); BASOPHILS PERCENT AUTO 0 % (0-2); EOSINOPHILS ABSOLUTE AUTO 0.14 K/mm3 (0.00-0.68); EOSINOPHILS PERCENT AUTO 1 % (0-6); Hematocrit 38.4 % (33.0-51.0); IMMATURE GRAN ABSOLUTE AUTO 0.05 K/mm3 (0.00-0.10); IMMATURE GRAN PERCENT AUTO 0 % (0-1); LYMPHOCYTES ABSOLUTE AUTO 2.89 K/mm3 (0.84-5.20); LYMPHOCYTES PERCENT AUTO 21 % (21-46); MONOCYTES PERCENT AUTO 8 % (4-13); Mean Corpuscular HGB 28.6 pg (26.0-34.0); Mean Corpuscular HGB Conc 33.9 g/dL (31.5-36.5); Mean Corpuscular Volume 85 fL (80-100); Mean Platelet Volume 9.3 fL (9.1-12.4); NEUTROPHILS ABSOLUTE AUTO 9.67 K/mm3 (1.96-9.15); NEUTROPHILS PERCENT AUTO 70 % (41-73); Platelet Count 475 K/mm3 (150-400); RDW Coefficient Variation 14.6 % (11.7-14.2); Red Blood Cell Count 4.54 M/mm3 (3.80-5.20)
[2021-04-08 05:41] LABS: Anion Gap 11 mmol/L (6-16); Blood Urea Nitrogen 7 mg/dL (8-24); Bun/Creatinine Ratio 13.1 (12.0-20.0); CO2, Blood 23 mmol/L (21-32); Calcium, Blood 8.9 mg/dL (8.5-10.1); Chloride, Blood 101 mmol/L (98-108); Creatinine, Blood 0.53 mg/dL (0.40-1.00); Glomerular Filtration Rate >60 (60-); Glucose, Blood 107 mg/dL (70-99); Potassium, Blood 3.4 mmol/L (3.5-5.5); Sodium, Blood 135 mmol/L (136-145)
--- NOTE | 2021-04-08 06:16 | NUR ---
Shift Summary PT AOX4 C/O N/V OVERNIGHT BUT HE HAS EXPERIENCING LESS EMESIS EPISODE. EMESIS OUTPUT OF 1050 ML. PT ALSO REPORTS SOME ABD PAIN/SORE. PT'S MOTHER AT BEDSIDE ADDRESSED THAT HALDOL, COMPAZINE, PHENEGRAN AND TORADOL HELPED WHEN THE PATIENT WAS ADMITTED TO [facility] FOR THE SAME DX. MOTHER ALSO REPORTED THAT ZOFRAN DID NOT HELPED AT ALL. NAUSEA AND VOMITING MANAGED WITH COMPAZINE, REGLAN, AND PHENEGRAN. PT APPEARS TO LOOK COMFORTABLE IN BED OVERNIGHT, ALTHOUGH SHE STATES THAT SHE HAS BEEN CONSISTENTLY FEELING NAUSEATED. PT HAS IV FLUIDS INFUSING AND ENC PO FLUIDS INTAKE. CLEAR LIQ DIET. NO BM YET. BT STILL HYPOACTIVE. CALL LIGHT WITHIN REACH. WILL PROVIDE REPORT TO ONCOMING NURSE.
--- NOTE | 2021-04-08 08:22 | NUR ---
PT APPEARS TO BE SLEEPING AT THIS TIME. PT'S MOTHER IS AT THE BEDSIDE FOR SUPPORT. RR EVEN AND UNLABORED. WILL CONTINUE TO MONITOR.
--- NOTE | 2021-04-08 17:11 | NUR ---
SHIFT SUMMARY PT CONTINUES TO HAVE NAUSEA AND VOMITING T/O THE SHIFT AND UNABLE TO KEEP FLUIDS DOWN. PT IS INDEPENDENT IN THE ROOM. SOME ABD PAIN FROM VOMITING. VSS. WILL MONITOR UNTIL REPORT TO NOC RN.
--- NOTE | 2021-04-09 02:00 | NUR ---
PT SLEEPING OFF AND ON SINCE PHENERGAN SUPPOS.PT OPTING TO WAIT UNTIL AM TO RESTRT IV AFTER SHOWER.MOTHER AT BEDSIDE AND SUPPORTIVE OF PTS DECISION.I ASKED PT AND MOTHER TO CALL ME IF PT CHANGES MIND AND WISHES IV TO BE RESTARTED EARLIER.
--- NOTE | 2021-04-09 05:40 | NUR ---
SHIFT SUMMARY PT AOX4, SLIGHTLY WITHDRAWN. MOM AT BEDSIDE. NAUSEA AND VOMITING CONTINOUS BUT IT HAS IMPROVED. PT VOMITED X2, 200ML AT THE BEGINNING OF THE SHIFT AND 50ML THIS MORNING. EMESIS APPEARS TO BE GREEN IN COLOR, NO BLOOD NOTED. NAUSEA AND VOMITING WAS TREATED WITH PHENEGRAN AND REGLAN. PT REPORTS ABD PAIN/SORENESS FROM VOMITING. PAIN MANAGED WITH TORADOL. PT HAD 1 SHOWER BEFORE BED. SLEPT WELL OVERNIGHT. VSS. CALL LIGHT WITHIN REACH. WILL PROVIDE REPORT TO ONCOMING NURSE.
--- NOTE | 2021-04-09 18:43 | NUR ---
SHIFT SUMMARY PT ADMITTED FOR INTRACTABLE N/V. PT IS TRANSGENDER AND PREFERS HE/THEM PRONOUNS. PT REPORTS THAT N/V IS MUCH BETTER TODAY AND THAT THE TREATMENT SEEMS TO BE WORKING. SEE EMR. PT REQUESTED FOR DIET TO BE ADVANCED TO FULL LIQUID AND ATE QUITE A BIT. UNFORTUNATELY AFTER EATING THE PT DID HAVE ONE EPISODE OF EMESIS. TREATED PER EMR. VSS. WILL REPORT TO ALTON DEVLIN.
--- NOTE | 2021-04-09 21:35 | NUR ---
PTS IV WAS DCD @ 1999 DUE TO INFILTRATE.SWELLING NOTED.PT C/O MILD NUMBNESS TO FINGERS.WIGGLES FINGERS WITOUT DIFF AND R RADIAL PULSE PALPABLE PT SHOWERED AND R HAND ELEVATED AND ICED.R HAND SWELLING ALREADY DECREASING SUROUNDING SKIN PINK AND PT REPORTS MILD NUMBNESS IMPROVING.NOTIFIED HOSPITALIST AND RECEIVED ORDERS FOR ORAL AND RECTAL DOSING OF ANTI-EMETICS AND DR INSTRUCTED THAT WE COULD ALLOW PT TO WAIT UNTIL AM FOR REPLACEMENT OF IV.
--- NOTE | 2021-04-09 23:29 | NUR ---
PT RECEIVED INITIAL DOSING OF PHENERGAN SUPPOSITORY. PT UNSURE IF DESIRES TO WAIT ON IV RESTART TIL AM OR ATTEMPT RESTART TONIGHT.
[2021-04-10 04:34] LABS: BASOPHILS ABSOLUTE AUTO 0.05 K/mm3 (0.00-0.23); BASOPHILS PERCENT AUTO 0 % (0-2); EOSINOPHILS ABSOLUTE AUTO 0.05 K/mm3 (0.00-0.68); EOSINOPHILS PERCENT AUTO 0 % (0-6); Hematocrit 42.7 % (33.0-51.0); Hemoglobin 14.2 g/dL (11.5-16.0); IMMATURE GRAN ABSOLUTE AUTO 0.06 K/mm3 (0.00-0.10); IMMATURE GRAN PERCENT AUTO 0 % (0-1); LYMPHOCYTES ABSOLUTE AUTO 2.21 K/mm3 (0.84-5.20); LYMPHOCYTES PERCENT AUTO 12 % (21-46); MONOCYTES ABSOLUTE AUTO 1.08 K/mm3 (0.16-1.47); MONOCYTES PERCENT AUTO 6 % (4-13); Mean Corpuscular HGB 28.1 pg (26.0-34.0); Mean Corpuscular HGB Conc 33.3 g/dL (31.5-36.5); Mean Corpuscular Volume 85 fL (80-100); Mean Platelet Volume 9.2 fL (9.1-12.4); NEUTROPHILS ABSOLUTE AUTO 14.47 K/mm3 (1.96-9.15); NEUTROPHILS PERCENT AUTO 81 % (41-73); Platelet Count 533 K/mm3 (150-400); RDW Coefficient Variation 14.6 % (11.7-14.2); RDW Standard Deviation 44.1 fL (35.1-46.3); Red Blood Cell Count 5.05 M/mm3 (3.80-5.20); White Blood Cell Count 17.92 K/mm3 (4.00-11.30)
--- NOTE | 2021-04-10 04:42 | NUR ---
SO HS SLEPT WITH NO REQUEST FOR EARLIER IV RESTART.
[2021-04-10 04:54] LABS: Albumin, Blood 3.7 g/dL (3.4-5.0); Anion Gap 11 mmol/L (6-16); Blood Urea Nitrogen 7 mg/dL (8-24); Bun/Creatinine Ratio 12.5 (12.0-20.0); CO2, Blood 22 mmol/L (21-32); Calcium, Blood 9.6 mg/dL (8.5-10.1); Chloride, Blood 102 mmol/L (98-108); Creatinine, Blood 0.56 mg/dL (0.40-1.00); Glomerular Filtration Rate >60 (60-); Glucose, Blood 92 mg/dL (70-99); Phosphorus, Blood 4.8 mg/dL (2.5-4.9); Potassium, Blood 3.9 mmol/L (3.5-5.5); Sodium, Blood 135 mmol/L (136-145)
--- NOTE | 2021-04-10 06:19 | NUR ---
SUMMARY PT WOKE AND SUDDEN N/V BILE GREEN 500 ML TOTAL.BP158/125,PULSE 115,TEMP 100.[address] ROMAN AND ADVISED OF VS AND IV OUT UNTIL THIS AM WITH SOON TO BE ATTEMPTED RESTART.PT HAS HAD HTN PRIOR THIS ADMIT.PT REPORTS HX HTN,MOTHER REPORTS PT WITHOUT HX HTN.NO ORDERS RECEIVED.DR ROMAN ADVISED ME TO OBTAIN IV THIS AM PLANNED AND CONTINUE TO MONITOR VS. MARIUM GUERRERO RN AT BEDSIDE FOR POSSIBLE PERIPHERAL IV PLACEMENT.PT AND MOTHER AGREE TO SPEAK WITH DAY CHARGE PANCHITO DEVLIN ABOUT POSSIBLE POWER GLIDE PLACEMENT FOR FUTURE NEEDS.
--- NOTE | 2021-04-10 18:27 | NUR ---
SUMMARY: NO ACUTE CHANGE TODAY. VSS, A/O. PT REPORTS THAT NAUSEA IS "A LITTLE BETTER" TODAY. PT ABLE TO NAP THIS MORNING AND WOKE UP IN THE AFTERNOON WITH NAUSEA. MEDICATED X2 FOR N/V, ABOUT 200ML TOTAL OF BILE EMESIS. PT ABLE TO SHOWER TODAY. NO SAFETY CONCERNS, WILL REPORT TO ALTON DEVLIN.
--- NOTE | 2021-04-11 07:32 | NUR ---
SUMMARY PT HAS POWER GLIDE LUE.IV FLUIDS INFUSING.SLEPT WELL TONIGHT.I SPOKE WITH DR SARABIA LAST NIGHT REGARDING MOTHERS QUESTIONS REGARDING POSSIBILITY OF PT HAVING FAMILIAL INHERITED ILLNESS CALLED CSID.DR SARABIA WOULD LIKE MOTHER TO REFER THESE QUESTIONS TO HOSPITALIST TODAY.MOTHER VERB UNDERSTANDING AND [place] ADDRESS TODAY.
--- NOTE | 2021-04-11 17:18 | NUR ---
SUMMARY: NO ACUTE CHANGE TODAY. PT CONTINES TO HAVE INTERMITTANT NAUSEA, AWAKENS FROM SLEEP VOMITING, SEE EMESIS OUTPUT. UNABLE TO KEEP DOWN ANY FOOD OR FLUIDS. ABD IS TENDER TO PALPATION. DR. MARSH CONSULTED TODAY, SEE NEW ORDERS, HEAD MRI COMPLETED TONIGHT. PT MOM ATTENTIVE AT BEDSIDE. VSS, A/O, FLAT AFFECT. WILL CTM AND REPORT TO NOC RN.
--- NOTE | 2021-04-12 07:34 | NUR ---
PT VSS. THEY HAD 1 EPISODE OF EMESIS. NO SIGNIFICANT PO INTAKE. IVF CONT PER ORDERS. IV PHENERGAN GIVEN X1, SCOPALAMINE PATCH IN PLACE BEHIND LEFT EAR. PT HAS FLAT AFFECT, MINIMAL INTERACTION W/STAFF. MOM DOES MOST OF THE TALKING FOR PT. PT APPEARED TO SLEEP FOR MAJORITY OF NIGHT, ONLY AWOKE A FEW TIMES FOR NURSE ROUNDING/ASSESMENT.
--- NOTE | 2021-04-12 18:38 | NUR ---
SHIFT SUMMARY NAUSEA AND VOMITING PT ABLE TO SLEEP MOST OF NIGHT, AWOKE AND ASKED FOR NAUSEA MEDS BEFORE TRYING TO DRINK TEA. TOLERATED TEA AND GLUCERNA DURING SHIFT. DENIED NAUSEA SINCE MEDICATED PER EMAR. NO EMESIS DURING SHIFT. PAIN IMPROVED DURING SHIFT NAUSEA DECREASED. MEDICATED THIS MORNING WITH TORODOL. PT AFFECT IS IMPROVING THEY BEGIN TO FEEL BETTER, CURRENTLY HONEY IS SITTING UP IN BED KNITTING. HAS BEEN UP USING RESTROOM VOIDING INDEPENDANTLY. PLAN IS FOR HONEY TO BE WATER ONLY AFTER 6AM AND NPO AT NOON FOR PROCEDURE.
--- NOTE | 2021-04-13 04:56 | NUR ---
SHIFT SUMMARY: PT A&O X4. VSS. PT DENIES N/V THROUGHOUT SHIFT. TOLERATING ENSURES AND TEA. INDEPENDENT IN ROOM. VOIDING WELL. IVF INFUSING PER EMAR. PLAN FOR SIPS+CHIPS AT 0600 THEN NPO AT NOON FOR UPPER ENDOSCOPY.
[2021-04-13 07:01] LABS: BASOPHILS ABSOLUTE AUTO 0.04 K/mm3 (0.00-0.23); BASOPHILS PERCENT AUTO 0 % (0-2); EOSINOPHILS ABSOLUTE AUTO 0.37 K/mm3 (0.00-0.68); EOSINOPHILS PERCENT AUTO 3 % (0-6); Hematocrit 37.5 % (33.0-51.0); Hemoglobin 12.4 g/dL (11.5-16.0); IMMATURE GRAN ABSOLUTE AUTO 0.03 K/mm3 (0.00-0.10); IMMATURE GRAN PERCENT AUTO 0 % (0-1); LYMPHOCYTES ABSOLUTE AUTO 4.31 K/mm3 (0.84-5.20); LYMPHOCYTES PERCENT AUTO 40 % (21-46); MONOCYTES ABSOLUTE AUTO 0.98 K/mm3 (0.16-1.47); MONOCYTES PERCENT AUTO 9 % (4-13); Mean Corpuscular HGB 28.2 pg (26.0-34.0); Mean Corpuscular HGB Conc 33.1 g/dL (31.5-36.5); Mean Corpuscular Volume 85 fL (80-100); Mean Platelet Volume 9.5 fL (9.1-12.4); NEUTROPHILS ABSOLUTE AUTO 5.07 K/mm3 (1.96-9.15); NEUTROPHILS PERCENT AUTO 47 % (41-73); Platelet Count 401 K/mm3 (150-400); RDW Coefficient Variation 14.6 % (11.7-14.2); RDW Standard Deviation 44.9 fL (35.1-46.3)
[2021-04-13 07:11] LABS: Albumin, Blood 2.9 g/dL (3.4-5.0); Anion Gap 10 mmol/L (6-16); Blood Urea Nitrogen 8 mg/dL (8-24); Bun/Creatinine Ratio 14.8 (12.0-20.0); CO2, Blood 26 mmol/L (21-32); Calcium, Blood 8.9 mg/dL (8.5-10.1); Chloride, Blood 102 mmol/L (98-108); Creatinine, Blood 0.54 mg/dL (0.40-1.00); Glomerular Filtration Rate >60 (60-); Glucose, Blood 77 mg/dL (70-99); Magnesium, Blood 1.9 mg/dL (1.6-2.4); Phosphorus, Blood 4.5 mg/dL (2.5-4.9); Potassium, Blood 3.8 mmol/L (3.5-5.5); Sodium, Blood 138 mmol/L (136-145)
--- NOTE | 2021-04-13 12:26 | NUR ---
PER DR. MASRH PATIENT CAN HAVE WATER UNTIL 2PM IN PREPARATION FOR EGD. PT HAS NO NAUSEA AND NO PAIN. THEY REPORT FEELING MUCH BETTER AND HAVE BEEN SLEEPING THIS AFTERNOON.
--- NOTE | 2021-04-13 16:47 | NUR ---
SHIFT SUMMARY NAUSEA AND VOMITING. AA0X4. PT HAS DENIED ANY NAUSEA OR PAIN TODAY. TOLERATED PO LIQUIDS UNTIL 2PM WHEN NPO FOR PROCEDURE. PT REPORTS BEING IN BETTER SPIRITS TODAY AND IS OPTIMISTIC AT THIS TIME. PLAN IS TO AWAIT PROCEDURE RESULTS AT PLAN FOR TOMORROW.
--- NOTE | 2021-04-13 16:47 | NUR ---
PT OUT OF ROOM FOR EGD.
--- NOTE | 2021-04-13 17:27 | NUR ---
04/13/21 1727 Ro Starks History, Chart, Medications and Allergies reviewed before start of procedure. Patient confirms NPO status and agrees with scheduled surgery. 3-LEAD EKG REVIEWED WITH PHYSICIAN PRIOR TO START OF PROCEDURE. MONITOR INTACT WITH CONTINUOUS PULSE OXIMETRY AND INTERMITTENT BP. PATIENT DETERMINED TO BE ASA APPROPRIATE FOR PROPOFOL SEDATION PRIOR TO START OF PROCEDURE BY . Bite Block Placed & REMOVED AT END OF CASE.
--- NOTE | 2021-04-13 17:57 | NUR ---
pt back from egd at this time, pt very tired at this time. will replace wrist cuff with regular arm cuff once patient wakes up more. pt able to transfer self to bed, nausea upon returning, medicated per emar. no emesis at this time.
--- NOTE | 2021-04-14 04:40 | NUR ---
INCREASED HR/LOW GRADE FEVER PATIENT VITALS TRENDING UP SINCE 0000. HR RANGING 120-130 AT THIS TIME, TEMP 99.6. PAIN ABDOMINAL PAIN 6/10 PER PT. HOUSE PHYSICIAN MADE AWARE. ORDERS TO INCREASE LR TO 150 ML/HR AND TO ADMINISTER DOSE OF TYLENOL. WILL ADMINISTER TO PATIENT. SEE EMAR. WCTM
--- NOTE | 2021-04-14 05:25 | NUR ---
SHIFT SUMMARY PATIENT A/OX4, HR/TEMP TRENDING UP SINCE 0000. SEE VITALS. LR INCREASED TO 150 ML/HR AND TYLENOL GIVEN PER HOUSE PHYSICAN ORDER AT ROUGHLY 0500. MULTIPLE BOUTS OF EMESIS OVERNIGHT. PT MEDICATED PER EMAR ORDERS FOR NAUSEA. BOWELS ACTIVE IN ALL 4 QUADRANTS AND PATIENT STATES THEY ARE "PASSING GAS." PT URINATING WITH NO DIFFICULTY. PT UP AD LIDIA. POWER GLIDE C/D/I AND IS INFUSING WITH NO DIFFICULTY.
--- NOTE | 2021-04-15 05:44 | NUR ---
PT HAD 1 EPISODE OF EMESIS AT THE BEGINNING OF SHIFT, REPORTED MILD NAUSEA T/O NIGHT, DENIED NEED FOR NAUSEA MEDS. PT SALAZAR SCHEDULED MEDS, DECLINED TYLENOL. PT DRANK APPX 1/2 OF GLUCERNA DRINK AND FEW SIPS OF WATER. PT REP VOIDING URINE X2 (USE OF HAT TO MEASURE URINE ENC), REP +FLATUS, NO BM. IVF CONT PER ORDERS.
[2021-04-15] MEDS ORDERED: METO10 PO (16:55)
[2021-04-15] MEDS ORDERED: PROC25S PR (16:56)
--- NOTE | 2021-04-15 17:29 | NUR ---
DISCHARGED REVIEWED DC INSTRUCTIONS W/PT. PT VERBALIZED UNDERSTANDING. CALLED PRESCRIPTIONS INTO [facility] PER PT REQUEST. DC'D POWERGLIDE, CATHETER INTACT. PT LEFT UNIT IN WC W/POSSESSIONS AND DC PAPERWORK IN HAND IN WC ACCOMPANIED BY MOM AND COUSIN.
== END 2021-04-15 17:27 | disposition home or self-care (01) | DRG 887 ==
LOC: ER 15:06 → ERHOLD 15:07 → ER 15:07 → SURS 04-07 00:23 → ERHOLD 04-07 00:24 → SURS 04-07 17:28
PROVIDERS: Internal Medicine; Internal Medicine Gastroenterology; Physician Assistant; Student in an Organized Health Care Education/Training Program; ADMIT Family Medicine
PROC: 0DB98ZZ Excision of Duodenum, Via Natural or Artificial Opening Endoscopic (ICD-10-PCS; 2021-04-13)
PROC: 0DB68ZX Excision of Stomach, Via Natural or Artificial Opening Endoscopic, Diagnostic (ICD-10-PCS; 2021-04-13)
PROC: 0DB98ZX Excision of Duodenum, Via Natural or Artificial Opening Endoscopic, Diagnostic (ICD-10-PCS; principal; 2021-04-13 14:00)
PROC: 0DBA8ZX Excision of Jejunum, Via Natural or Artificial Opening Endoscopic, Diagnostic (ICD-10-PCS; 2021-04-13 14:00)
DX: F50.89 Other specified eating disorder (principal); E87.1 Hypo-osmolality and hyponatremia; F43.10 Post-traumatic stress disorder, unspecified; F32.A Depression, unspecified; E87.6 Hypokalemia; K31.7 Polyp of stomach and duodenum; K59.00 Constipation, unspecified; Z20.822 Contact with and (suspected) exposure to COVID-19; K21.00 Gastro-esophageal reflux disease with esophagitis, without bleeding; F60.3 Borderline personality disorder; D75.839 Thrombocytosis, unspecified; G43.909 Migraine, unspecified, not intractable, without status migrainosus; F41.9 Anxiety disorder, unspecified; Z91.51 Personal history of suicidal behavior; Z88.2 Allergy status to sulfonamides; Z88.8 Allergy status to other drugs, medicaments and biological substances; Z87.891 Personal history of nicotine dependence; Z90.49 Acquired absence of other specified parts of digestive tract; Z71.51 Drug abuse counseling and surveillance of drug abuser; Z79.899 Other long term (current) drug therapy; Z68.26 Body mass index [BMI] 26.0-26.9, adult; Z28.21 Immunization not carried out because of patient refusal
CPT/HCPCS: 0241U; 36415; 70553; 74177; 80048; 80053; 80069; 80400; 82533; 83690; 83735; 84132; 85025; 88305; 88342; 93005; 93010; 96365; 96366; 96375; 96376; 99285-25; A9270; A9579; C9113; G0378; J0780; J0834; J1790; J1885; J2060; J2405; J2550; J2704; J2765; J3475; J3480; J7030; J7042; J7120; Q9967

== ENCOUNTER 2021-07-14 13:40 | Inpatient (IN) | payer OTHER ==
[~2021-07-14] VITALS: Ht 167.6 cm; Wt 74.2 kg
[~2021-07-14 13:40] MED LIST changes: +Amitriptyline H10 MG PO; +COMPAZINE10 MG PO; +METO10 PO; +PROC25S PR
[2021-07-14 14:21] LABS: BASOPHILS ABSOLUTE AUTO 0.07 K/mm3 (0.00-0.23); BASOPHILS PERCENT AUTO 1 % (0-2); EOSINOPHILS ABSOLUTE AUTO 0.41 K/mm3 (0.00-0.68); EOSINOPHILS PERCENT AUTO 3 % (0-6); Hematocrit 41.8 % (33.0-51.0); Hemoglobin 13.2 g/dL (11.5-16.0); IMMATURE GRAN ABSOLUTE AUTO 0.05 K/mm3 (0.00-0.10); IMMATURE GRAN PERCENT AUTO 0 % (0-1); LYMPHOCYTES ABSOLUTE AUTO 2.47 K/mm3 (0.84-5.20); LYMPHOCYTES PERCENT AUTO 16 % (21-46); MONOCYTES ABSOLUTE AUTO 0.86 K/mm3 (0.16-1.47); MONOCYTES PERCENT AUTO 6 % (4-13); Mean Corpuscular HGB 27.8 pg (26.0-34.0); Mean Corpuscular HGB Conc 31.6 g/dL (31.5-36.5); Mean Corpuscular Volume 88 fL (80-100); NEUTROPHILS ABSOLUTE AUTO 11.52 K/mm3 (1.96-9.15); NEUTROPHILS PERCENT AUTO 75 % (41-73); Platelet Count 507 K/mm3 (150-400); RDW Coefficient Variation 14.8 % (11.7-14.2); RDW Standard Deviation 47.8 fL (35.1-46.3); Red Blood Cell Count 4.74 M/mm3 (3.80-5.20); White Blood Cell Count 15.38 K/mm3 (4.00-11.30)
[2021-07-14 14:58] LABS: Alanine Aminotransfer (ALT/SGP 23 U/L (12-78); Albumin, Blood 3.9 g/dL (3.4-5.0); Albumin/Globulin Ratio 1.1 (0.8-1.8); Alk Phos 63 U/L (50-136); Anion Gap 9 mmol/L (6-16); Aspartate Aminotrans (AST/SGOT 10 U/L (12-37); Bilirubin, Total 0.4 mg/dL (0.1-1.0); Blood Urea Nitrogen 10 mg/dL (8-24); Bun/Creatinine Ratio 16.4 (12.0-20.0); CO2, Blood 21 mmol/L (21-32); Chloride, Blood 112 mmol/L (98-108); Creatinine, Blood 0.61 mg/dL (0.40-1.00); Globulin, Blood 3.6 g/dL (2.2-4.0); Glomerular Filtration Rate >60 (60-); Glucose, Blood 134 mg/dL (70-99); Potassium, Blood 4.4 mmol/L (3.5-5.5); Sodium, Blood 142 mmol/L (136-145); Total Protein, Blood 7.5 g/dL (6.4-8.2)
[2021-07-14 16:21] LABS: Source, Urine Clean Catch
[2021-07-14 16:59] LABS: Bilirubin, Urine Neg (Neg); Blood, Urine Neg (Neg); Glucose Qualitative, Urine Neg (Neg); Ketones, Urine 4+ (Neg); Leukocyte Esterase, Urine Neg (Neg); Nitrite, Urine Neg (Neg); Protein, Urine Neg (Neg); Urobilinogen, Urine NORM (Normal)
[2021-07-14 17:14] LABS: Appearance, Urine Hazy (Clear); Color, Urine Pale Yellow (P-Yellow)
[2021-07-14 17:15] LABS: Bacteria Mod /hpf; Red Blood Cells, Urine 0-2 /hpf (0-2); Squamous Epithelial Cells Few /hpf (Few); White Blood Cells, Urine 0-2 /hpf (0-5)
[2021-07-14] MEDS ORDERED: Amitriptyline H10 MG PO (20:12)
[2021-07-14] MEDS ORDERED: ABILIFY MYCITE2 M2 PO (20:12)
--- NOTE | 2021-07-14 21:50 | NUR ---
RECEIVED PATIENT TO UNIT ABOUT 2119. ALERT AND ORIENTED X'S 4. NO ACUTE DISTRESS NOTED, RESPIRATIONS EVEN AND UNLABORED. HAS SOME NAUSEA WITHOUT VOMITTING. ORIENTED TO ROOM AND CALL ROSARIO, VERBALIZED UNDERSTANDING.
[2021-07-15 05:01] LABS: BASOPHILS ABSOLUTE AUTO 0.03 K/mm3 (0.00-0.23); BASOPHILS PERCENT AUTO 0 % (0-2); EOSINOPHILS PERCENT AUTO 0 % (0-6); Hematocrit 42.5 % (33.0-51.0); Hemoglobin 13.7 g/dL (11.5-16.0); IMMATURE GRAN ABSOLUTE AUTO 0.11 K/mm3 (0.00-0.10); IMMATURE GRAN PERCENT AUTO 1 % (0-1); LYMPHOCYTES ABSOLUTE AUTO 1.66 K/mm3 (0.84-5.20); LYMPHOCYTES PERCENT AUTO 8 % (21-46); MONOCYTES ABSOLUTE AUTO 0.83 K/mm3 (0.16-1.47); MONOCYTES PERCENT AUTO 4 % (4-13); Mean Corpuscular HGB 27.9 pg (26.0-34.0); Mean Corpuscular HGB Conc 32.2 g/dL (31.5-36.5); Mean Corpuscular Volume 87 fL (80-100); Mean Platelet Volume 9.1 fL (9.1-12.4); NEUTROPHILS ABSOLUTE AUTO 18.74 K/mm3 (1.96-9.15); NEUTROPHILS PERCENT AUTO 88 % (41-73); Platelet Count 474 K/mm3 (150-400); RDW Coefficient Variation 14.9 % (11.7-14.2); RDW Standard Deviation 47.5 fL (35.1-46.3); Red Blood Cell Count 4.91 M/mm3 (3.80-5.20); White Blood Cell Count 21.37 K/mm3 (4.00-11.30)
[2021-07-15 05:46] LABS: Anion Gap 12 mmol/L (6-16); Blood Urea Nitrogen 7 mg/dL (8-24); Bun/Creatinine Ratio 14.9 (12.0-20.0); CO2, Blood 22 mmol/L (21-32); Calcium, Blood 9.4 mg/dL (8.5-10.1); Chloride, Blood 100 mmol/L (98-108); Creatinine, Blood 0.47 mg/dL (0.40-1.00); Glomerular Filtration Rate >60 (60-); Glucose, Blood 122 mg/dL (70-99); Potassium, Blood 3.6 mmol/L (3.5-5.5); Sodium, Blood 134 mmol/L (136-145)
--- NOTE | 2021-07-15 06:22 | NUR ---
NAUSEA/VOMITTING X'S 4 THIS AM. MEDICATED WITH ZOFRAN. FLUIDS STARTED.
--- NOTE | 2021-07-15 16:27 | NUR ---
PATIENT IS AWAKE,ALERT AND ORIENTED TIMES THREE. PATIENT HAD SEVERAL EMESIS MEDICATION GIVEN PER MD ORDER. DENIES PAIN. PATIENT TOOK SEVERAL SHOWER, PATIENT STATES ' THE SHOWER HELP WITH MY VOMITING.NO ACUTE DISTRESS NOTED.
[2021-07-16 04:40] LABS: BASOPHILS ABSOLUTE AUTO 0.04 K/mm3 (0.00-0.23); BASOPHILS PERCENT AUTO 0 % (0-2); EOSINOPHILS ABSOLUTE AUTO 0.01 K/mm3 (0.00-0.68); EOSINOPHILS PERCENT AUTO 0 % (0-6); Hematocrit 39.6 % (33.0-51.0); Hemoglobin 13.1 g/dL (11.5-16.0); IMMATURE GRAN ABSOLUTE AUTO 0.08 K/mm3 (0.00-0.10); IMMATURE GRAN PERCENT AUTO 0 % (0-1); LYMPHOCYTES ABSOLUTE AUTO 2.41 K/mm3 (0.84-5.20); LYMPHOCYTES PERCENT AUTO 12 % (21-46); MONOCYTES ABSOLUTE AUTO 1.42 K/mm3 (0.16-1.47); MONOCYTES PERCENT AUTO 7 % (4-13); Mean Corpuscular HGB 28.2 pg (26.0-34.0); Mean Corpuscular HGB Conc 33.1 g/dL (31.5-36.5); Mean Corpuscular Volume 85 fL (80-100); Mean Platelet Volume 9.2 fL (9.1-12.4); NEUTROPHILS ABSOLUTE AUTO 15.71 K/mm3 (1.96-9.15); NEUTROPHILS PERCENT AUTO 80 % (41-73); Platelet Count 520 K/mm3 (150-400); RDW Standard Deviation 46.5 fL (35.1-46.3); Red Blood Cell Count 4.65 M/mm3 (3.80-5.20); White Blood Cell Count 19.67 K/mm3 (4.00-11.30)
[2021-07-16 05:03] LABS: Anion Gap 10 mmol/L (6-16); Blood Urea Nitrogen 15 mg/dL (8-24); Bun/Creatinine Ratio 24.5 (12.0-20.0); CO2, Blood 23 mmol/L (21-32); Calcium, Blood 8.9 mg/dL (8.5-10.1); Chloride, Blood 108 mmol/L (98-108); Creatinine, Blood 0.61 mg/dL (0.40-1.00); Glomerular Filtration Rate >60 (60-); Glucose, Blood 116 mg/dL (70-99); Potassium, Blood 3.6 mmol/L (3.5-5.5); Sodium, Blood 141 mmol/L (136-145)
--- NOTE | 2021-07-16 05:04 | NUR ---
SHIFT NAUSEA/VOMITTING THROUGH NIGHT, FLUID DARK BROWN. MEDICATED WITH ZOFRAN AND REGLAND FOR MANAGEMENT, VOICED SOME RELIEF. CURRRENTLY RESTING PEACEFUULY IN BED WITH EYES CLOSED. SAFETY MAINTAINED, CALL ROSARIO IN REACH.
--- NOTE | 2021-07-16 10:18 | NUR ---
NURSE ATTEMPT TIME 5 FROM [id number] AM TO 10:00AM TO ADMINISTER MORNING MEDICATION. PATIENT IS ON HER FIFTH SHOWER FROM SHIFT BEGINS. NURSE WILL CONTINUE TO TRY TO ADMINISTER MEDICATION ORDER. NO ACUTE DISTRESS NOTED. PATIENT IS CURRENTLY IN THE SHOWER. SHE WAS ADVISED TO CALL FOR ASSISTANCE.
--- NOTE | 2021-07-16 15:10 | NUR ---
PATIENT WAS ENCOURAGE ON THE NEW PLAN OF CARE TO DECREASE INJURY SUCH STAY IN BED AND MINIMIZE SHOWER PATIENT HAS TAKEN 7 SHOWER FROM 7 AM TO 3 PM. PATIENT INSISIT ON GETTING BACK IN SHOWER. PATIENT WAS GIVEN A SHOWER CHAIR AND A TEST ENGINEERING MANAGER ( ZACKERY) SUPERVISE PATIENT DURING SHOWER.
--- NOTE | 2021-07-16 18:14 | NUR ---
PATIENT IS AWKE,ALERT AND ORIENTED TIMES THREE. PATIENT HAS AN EPISODE [employer] COMPOSITION TILE LAYER WAS CALLED NEW ORDER RECIEVEV FOR EKG AND NORMAL SALINE AT 150ML PER HR. PATIENT WAS ADVISED TO CALL FOR ASSITANCE BED ALARM ACTIVATED. NO ACUTE DISTRESS NOTED.
[2021-07-17 04:58] LABS: BASOPHILS ABSOLUTE AUTO 0.05 K/mm3 (0.00-0.23); BASOPHILS PERCENT AUTO 0 % (0-2); EOSINOPHILS ABSOLUTE AUTO 0.04 K/mm3 (0.00-0.68); EOSINOPHILS PERCENT AUTO 0 % (0-6); Hematocrit 35.6 % (33.0-51.0); Hemoglobin 11.6 g/dL (11.5-16.0); IMMATURE GRAN ABSOLUTE AUTO 0.06 K/mm3 (0.00-0.10); IMMATURE GRAN PERCENT AUTO 0 % (0-1); LYMPHOCYTES ABSOLUTE AUTO 3.34 K/mm3 (0.84-5.20); LYMPHOCYTES PERCENT AUTO 21 % (21-46); MONOCYTES ABSOLUTE AUTO 1.65 K/mm3 (0.16-1.47); MONOCYTES PERCENT AUTO 10 % (4-13); Mean Corpuscular HGB Conc 32.6 g/dL (31.5-36.5); Mean Corpuscular Volume 86 fL (80-100); Mean Platelet Volume 9.3 fL (9.1-12.4); NEUTROPHILS ABSOLUTE AUTO 10.65 K/mm3 (1.96-9.15); NEUTROPHILS PERCENT AUTO 67 % (41-73); Platelet Count 421 K/mm3 (150-400); RDW Standard Deviation 47.4 fL (35.1-46.3); Red Blood Cell Count 4.15 M/mm3 (3.80-5.20); White Blood Cell Count 15.79 K/mm3 (4.00-11.30)
[2021-07-17 05:16] LABS: Alanine Aminotransfer (ALT/SGP 19 U/L (12-78); Albumin, Blood 3.3 g/dL (3.4-5.0); Alk Phos 52 U/L (50-136); Anion Gap 8 mmol/L (6-16); Aspartate Aminotrans (AST/SGOT 5 U/L (12-37); Bilirubin, Total 0.7 mg/dL (0.1-1.0); Blood Urea Nitrogen 13 mg/dL (8-24); Bun/Creatinine Ratio 23.8 (12.0-20.0); CO2, Blood 28 mmol/L (21-32); Calcium, Blood 8.4 mg/dL (8.5-10.1); Chloride, Blood 106 mmol/L (98-108); Creatinine, Blood 0.55 mg/dL (0.40-1.00); Globulin, Blood 3.2 g/dL (2.2-4.0); Glomerular Filtration Rate >60 (60-); Glucose, Blood 97 mg/dL (70-99); Potassium, Blood 2.9 mmol/L (3.5-5.5); Sodium, Blood 142 mmol/L (136-145); Total Protein, Blood 6.5 g/dL (6.4-8.2)
--- NOTE | 2021-07-17 05:46 | NUR ---
NAUSEA/VOMITTING UP WATER THROUGH NIGHT. MEDICATED WITH ZOFRAN AND REGLAND. OFFERED PATIENT ICE CHIPS TO KEEP AT BED SIDE INSTEAD OF DRINKING LG AMOUNTS OF WATER. WAS ABLE TO SLEEP LONGER WITHOUT VOMITTING. N/S INFUSING AT 150ML/HR. CURRENTLY RESTING IN BED. SAFETY MAINTAINED, CALL ROSARIO IN REACH.
[2021-07-17 13:28] LABS: Potassium, Blood 3.5 mmol/L (3.5-5.5)
[2021-07-17] MEDS ORDERED: ONDA4ODT MM (14:28)
[2021-07-17] MEDS ORDERED: PROC25S PR (14:28)
--- NOTE | 2021-07-17 15:13 | NUR ---
PATIENT DISCHARGED TO HOME ACCOMPANIED BY A FRIEND. IV SALINE LOCK REMOVED WITHOUT INCIDENT. VERBALIZED UNDERSTANDING OF D/C INSTRUCTIONS, WILL MAKE [facility]WN [facility] F/U APPOINTMENT. OFF UNIT VIA W/C AT 1455. NO BELONGINGS LEFT BEHIND IN ROOM.
[2021-07-20] MEDS ORDERED: KETO60I IM (20:48)
[2021-07-20] MEDS ORDERED: METO10 PO (20:48)
[2021-07-20] MEDS ORDERED: PHENERGAN25 MG PR (20:48)
== END 2021-07-17 14:56 | disposition home or self-care (01) | DRG 394 ==
LOC: ER 13:40 → MEDS 13:41
PROVIDERS: Family Medicine; Internal Medicine; Physician Assistant; ADMIT Internal Medicine
DX: R11.15 Cyclical vomiting syndrome unrelated to migraine (principal); R65.10 Systemic inflammatory response syndrome (SIRS) of non-infectious origin without acute organ dysfunction; Z53.29 Procedure and treatment not carried out because of patient's decision for other reasons; F41.8 Other specified anxiety disorders; R94.31 Abnormal electrocardiogram [ECG] [EKG]; R55 Syncope and collapse; E87.6 Hypokalemia; F17.210 Nicotine dependence, cigarettes, uncomplicated; F12.90 Cannabis use, unspecified, uncomplicated; Z88.2 Allergy status to sulfonamides; Z88.8 Allergy status to other drugs, medicaments and biological substances; Z79.899 Other long term (current) drug therapy
CPT/HCPCS: 36415; 80048; 80053; 81001; 81025; 83690; 83735; 84132; 85025; 87086; 93005; 93010; 96361; 96372; 96374; 96375; 96376; 99285-25; A9270; C9113; G0378; J1200; J1630; J1650; J1790; J1885; J2405; J2550; J2765; J7030

== ENCOUNTER 2021-08-01 12:56 | Emergency (ER) | payer OTHER ==
[~2021-08-01] VITALS: Ht 167.6 cm; Wt 68.0 kg
[~2021-08-01 12:56] MED LIST changes: +KETO60I IM
== END 2021-08-01 14:53 | disposition home or self-care (01) ==
LOC: ER 12:56
DX: M61.9 Calcification and ossification of muscle, unspecified (principal); Z87.891 Personal history of nicotine dependence; Z79.899 Other long term (current) drug therapy; Z88.2 Allergy status to sulfonamides; Z88.8 Allergy status to other drugs, medicaments and biological substances
CPT/HCPCS: 99282

== ENCOUNTER 2023-01-31 00:18 | Emergency (ER) | payer OTHER ==
[~2023-01-31] VITALS: Ht 167.6 cm; Wt 70.8 kg
[~2023-01-31 00:18] MED LIST changes: +ALBU90OI INH; +Diclofenac Pota50 MG PO; +Flovent 44 mc10.6 GM INH
[2023-01-31 00:47] VITALS: BP 129/98
[2023-01-31] MEDS ORDERED: DEXA2 PO (05:27)
== END 2023-01-31 05:44 | disposition home or self-care (01) ==
LOC: ER 00:18
DX: J05.0 Acute obstructive laryngitis [croup] (principal); Z88.8 Allergy status to other drugs, medicaments and biological substances; Z88.2 Allergy status to sulfonamides; Z87.891 Personal history of nicotine dependence
CPT/HCPCS: 70360; 71046; 94640; 94664; 96372; 99284-25; J0171; J1100

== ENCOUNTER → 2023-06-15 | Outpatient (CLI) | payer OTHER ==
[~2023-06-15] MED LIST changes: +DEXA2 PO
[2023-06-22 17:00] LABS: HPV GENOTYPE 16 Not Detected; HPV GENOTYPE 18 Not Detected; HPV HIGH RISK Not Detected; HPV SOURCE Vaginal
== END ==
LOC: LAB 17:26 → LAB SHORT 17:26
PROVIDERS: Family Medicine
DX: Z01.419 Encounter for gynecological examination (general) (routine) without abnormal findings (principal)
CPT/HCPCS: 87624; G0123